=== PATIENT | female | born 1955 | race Caucasian/White ===

== ENCOUNTER → 2018-03-27 08:00 | Outpatient (CLI) | payer MEDICARE ==
[2016-05-17 10:59] VITALS: BMI 30.7
[~2018-03-27 08:00] MED LIST: ATIVAN1 MG PO; BAYER CHEWABLE81 MG PO; BISOPROLOL-HCT1 EAC1 PO; BUMEX2 MG PO; CELEXA10 MG PO; COZAAR100 MG PO; ELIQUIS5 MG PO; EZFE 200200 MG PO; FOLIC ACID1 MG PO; IPRAT-ALBUT 0.5-3 ML UPD; K-DUR20 MEQ PO; KLOR-CON M2020 MEQ PO; KLOR-CON/EF 2525 MEQ PO; LASIX20 MG PO; LEVAQUIN PREMI750 MG IV; MAG-OX 400 MG400 MG PO; MEPRON750 MG/5 M PO; METOPROLOL TART50 MG PO; NICODERM C1 PATCH .3 TRANSDERM; NORVASC10 MG PO; NORVASC5 MG PO; OMNICEF300 MG PO; ONDANSETRON4 MG/2 M3 IV; PREDINSONE PO; PREDNISO PO; PREDNISONE20 MG PO; PREDNISONE5 MG PO; PREDNISONE50 MG; PRILOSEC20 MG PO; RACEMIC EPI 2.0.5 ML NEB; RESTORIL15 MG PO; ROCALTROL0.25 MCG PO; SOLU-MEDRO40 MG/1 M1 IVPB; SYMBICORT 80-10.2 GM INH; TESSALON PERLE100 MG PO; TUMS500 MG PO; ULTRAM50 MG PO; VENTOLIN HFA18 GM INH; VIBRAMYCIN 100100 MG PO; VITAMIN D31000 UNIT PO; XARELTO15 MG PO; ZOSYN 3.3753.375 G1 IV; [UNRECOGNIZED DRUG - OTHER] PO
== END | disposition home or self-care (01) ==
LOC: D.MAMMO 12-13 11:00
DX: Z12.31 Encounter for screening mammogram for malignant neoplasm of breast (principal)

== ENCOUNTER 2018-04-25 06:31 | Outpatient (CLI) | payer MEDICARE ==
[~2018-04-25] VITALS: Ht 160 cm; Wt 86.4 kg
--- NOTE | ~2018-04-25 | HEMODYNAMI ---
PATIENT:KERA ENRIQUEZ MEDICAL RECORD: [id number] : 59 LOCATION:[facility] ADMISSION DATE: 04/25/18 Generatedon:04/25/201810:26 Patient name: KERA ENRIQUEZ Patient #: [id number] SSN: : 1955 Date of study: 04/25/2018 Page: Of Hemodynamic Procedure Report Patient Data Patient Demographics Procedure consent was obtained First Name: KERA Gender: Female Last Name: ZOE : 1955 [facility] Initial: JINA Age: 63 year(s) Patient #: [id number] Race: Unknown Additional ID: [id number] Contact details [address]: [address] [place] [address] State: [place] City: [place] Zip code: [address] Past Medical History Allergies Allergen Reaction Date Comments Reported Codeine 04/25/2018 Admission Admission Data Admission Date: 04/25/2018 Admission Time: 6:31 Procedure Procedure Types Cath Procedure Peripheral Cath Diagnostic Procedure Venography IVC/SVC IVC Filter Retreival Procedure Description Procedure Date Procedure Date: 04/25/2018 Procedure Start Time: 9:48 Procedure Staff Name Function Taqueria Tamayo MD Performing Physician Maximiliano Dai RT Scrub Casandra Holley RN Nurse Tami Kendall RT Monitor Procedure Data Cath Procedure Fluoroscopy Diagnostic fluoroscopy Total fluoroscopy Time: 3.7 time: 3.7 min min Diagnostic fluoroscopy Total fluoroscopy dose: 296 dose: 296 mGy mGy Contrast Material Contrast Material Type Amount (ml) Isovue 300 20 Diagnostic catheters Device Type Used For End Catheter Placement Merit Impress KA 2 5Fr 40CM catheter ([id number]) Procedure Medications Medication Administration Route Dosage Heparin Flush Bag added to field 2 bags (1000units/500ml NS) Lidocaine 1% added to field 20 Versed I.V. 1 mg Fentanyl I.V. 50 mcg Versed I.V. 1 mg Fentanyl I.V. 50 mcg Versed I.V. 1 mg Fentanyl I.V. 50 mcg Versed I.V. 1 mg Fentanyl I.V. 50 mcg Hemodynamics Rest Heart Rate: 76 (bpm) Snapshots Pre Cath Intra NCS Post Cath Vital Signs Time Heart Resp SPO2 etCO2 NIBP (mmHg) Rhythm Pain Sedation Rate (ipm) (%) (mmHg) Status Level (bpm) 9:27:34 93 27 100 32.4 146/89(118) NSR 0 (11) 10(A) , No pain 9:32:01 77 12 100 36.9 165/77(123) NSR 0 (11) 10(A) , No pain 9:36:33 71 16 100 34.6 154/71(126) NSR 0 (11) 10(A) , No pain 9:40:59 72 14 100 34.6 157/73(119) NSR 0 (11) 10(A) , No pain 9:45:28 73 14 100 38.3 156/76(123) NSR 0 (11) 10(A) , No pain 9:49:56 73 14 99 36.8 153/80(114) NSR 0 (11) 8(A) , No pain 9:54:22 72 12 98 39.1 145/68(111) NSR 0 (11) 8(A) , No pain 9:58:38 71 13 98 30.8 138/71(122) NSR 0 (11) 8(A) , No pain 10:02:56 72 12 95 38.3 137/65(104) NSR 0 (11) 8(A) , No pain 10:07:12 73 9 97 39.1 121/63(98) NSR 0 (11) 8(A) , No pain 10:11:31 72 11 94 39.1 129/65(108) NSR 0 (11) 8(A) , No pain 10:15:44 73 10 96 42.9 125/75(105) NSR 0 (11) 8(A) , No pain 10:20:02 71 10 96 42.1 115/62(91) NSR 0 (11) 8(A) , No pain 10:24:16 71 11 96 42.9 118/65(88) NSR 0 (11) 8(A) , No pain Medications Time Medication Route Dose Verified Delivered Reason Notes Effec tiveness by by 9:39:17 Heparin Flush added 2 Taqueria Meng used for Bag to bags Roni Tamayo procedure (1000units/500ml field MD CEDENO NS) 9:39:31 Lidocaine 1% added 20ml Taqueria Meng used for to vial Roniestevan Tamayo procedure field MD CEDENO 9:46:36 Versed I.V. 1 mg Taqueria Guajardo for Roni Kishan RN sedation 9:46:46 Fentanyl I.V. 50 Taqueria Casandra for mcg Roni Kishan RN sedation 9:49:10 Versed I.V. 1 mg Taqueria Casandra for Roni Kishan RN sedation 9:49:19 Fentanyl I.V. 50 Taqueria Casandra for mcg Roni Kishan RN sedation 9:55:00 Versed I.V. 1 mg Taqueria Casandra for Roni Kishan RN sedation 9:55:08 Fentanyl I.V. 50 Taqueria Casandra for mcg Roni Kishan RN sedation 10:04:30 Versed I.V. 1 mg Taqueria Casandra for Roni Kishan RN sedation 10:04:37 Fentanyl I.V. 50 Taqueria Casandra for mcg Roni Kishan RN sedation Procedure Log Time Note 9:11:17 Maximiliano Dai RT (R) (CV) sent for patient. Start room use. 9:11:46 Time tracking: Regular hours (M-F 7:00 - 5:00) 9:11:50 Plan of Care:Hemodynamics will remain stable., Cardiac rhythm will remain stable., Comfort level will be maintained., Respiratory function will remain adequate., Patient/ family verbilizes understanding of procedure., Procedure tolerated without complication., Recovers from procedure without complications.. 9:11:56 Patient received from Outpatients to IR Alert and oriented. Tansferred to table in Supine position. 9:11:57 Correct patient and procedure confirmed by team. 9:11:59 Signed procedure consent form obtained from patient. 9:11:59 ECG and BP/O2 sat monitors applied to patient. 9:12:00 Full Disclosure recording started 9:12:01 - 9:12:04 H&P Date Dictated: 04/25/2018 H&P Addendum completed by physician on day of procedure. (MUST COMPLETE FOR ALL OUTPATIENTS). 9:12:05 Pre-op teaching completed and patient verbalized understanding. 9:12:06 Pre-procedure instructions explained to patient. 9:12:07 Family in waiting room. 9:12:10 Patient NPO since Midnight. 9:12:15 Is the patient allergic to Iodine/contrast media? No. 9:12:29 Patient allergic to Codeine 9:12:31 Is the patient allergic to Iodine/contrast media? No. 9:12:34 Is patient on blood thinner?Yes 9:12:44 ACC The patient was administered the following blood thiners within the last 24 hours: Eliquis 9:12:47 Patient diabetic? No. 9:12:48 - 9:12:49 ----Pre-sedation anethsthesia assessment.---- 9:12:52 Previous problem with sedation/anesthesia? No ? 9:12:54 Snore? Yes 9:12:56 Sleep apnea? No 9:12:57 Deviated septum? No 9:13:01 Opens mouth fully? Yes 9:13:02 Sticks out tongue? Yes 9:13:09 Airway obstruction? Yes copd 9:13:14 Dentures? No ? 9:22:00 Use device set IR Diagnostic 9:22:01 Tegaderm 4 x 4 (1626W) opened to sterile field. 9:22:02 Sterile Angiographic Pack opened to sterile field. 9:22:02 Bag Decanter () opened to sterile field. 9:26:09 Vital chart was started 9:26:10 Baseline sample Acquired. 9:26:22 Patient pain scale 0/10 no pain. 9:26:29 IV patent on arrival in right antecubital with 0.9% NaCl at [facility]. 9:26:38 Right neck area was prepped with chlora-prep and draped in sterile fashion 9::40 Alarms reviewed by R. N. 9::40 Sharps counted by scrub and verified by R.N. 9:33:38 Baseline sample Acquired. 9:39:17 Heparin Flush Bag (1000units/500ml NS) 2 bags added to field was administered by Taqueria Tamayo MD; used for procedure; 9:39:31 Lidocaine 1% 20ml vial added to field was administered by Taqueria hansen MD; used for procedure; 9:42:34 Micropuncture VSI 4FR kit opened to sterile field. 9:43:00 BENTSON 145cm wire ([id number]) opened to sterile field. 9:43:45 SNARE Filter Retreival Kit (SRK20) opened to sterile field. 9:44:04 Physician arrived 9:44:07 --------ALL STOP TIME OUT------ 9:44:09 Final Timeout: patient, procedure, and site verified with staff and physician. All members of the team are in agreement. 9:44:23 Right neck site verified by team. 9:44:35 Sedation plan: IV Moderate Sedation Medication:Versed, Fentanyl 9:46:36 Versed 1 mg I.V. was administered by Casandra Holley RN; for sedation; 9:46:46 Fentanyl 50 mcg I.V. was administered by Casandra Holley RN; for sedation ; 9:46:57 Procedure started. 9:48:32 Local anesthetic to right IJ vein with Lidocaine 1% by Taqueria Tamayo MD.INITIAL ACCESS ONLY 9:49:10 Versed 1 mg I.V. was administered by Casandra Holley RN; for sedation; 9:49:19 Fentanyl 50 mcg I.V. was administered by Casandra Holley RN; for sedation ; 9:51:13 Access obtained with 4Fr micropunture. 9:52:30 A Merit Impress KA 2 5Fr 40CM catheter ([id number]) was advanced over the wire and used for inital access 9:55:00 Versed 1 mg I.V. was administered by Casandra Holley RN; for sedation; 9:55:04 The bard snare sheath inserted. 9:55:08 Fentanyl 50 mcg I.V. was administered by Casandra Holley RN; for sedation ; 9:57:41 The snare retrieval system is inserted 10:03:22 The cava filter in place is snared and removed. 10:03:47 A cavagram is performed. 10:04:30 Versed 1 mg I.V. was administered by Casandra Holley RN; for sedation; 10:04:37 Fentanyl 50 mcg I.V. was administered by Casandra Holley RN; for sedation ; 10:04:38 FILTER Tech LP Vena Cava ([id number]) opened to sterile field. 10:10:31 The tech lp vena cava filter system is put in place to deliver the permanent filter to the vena cava. 10:11:31 Procedure ended.(Physican Out) 10:12:03 Fluoroscopy time 03.70 minutes. 10:12:10 Fluoroscopy dose: 296 mGy 10:12:10 Flurop Dose total: 296 10:13:34 Contrast amount:Isovue 300 20ml. 10:18:47 Post-op/insertion site Right Jugular vein dressed using a 4 x 4 and Tegaderm. 10:19:12 Post right subclavian vein:stable 10:19:28 Post procedure instruction explained to patient.Patient verbalizes understanding. 10:19:30 Patient needs reinforcement of post procedure teaching. 10:19:33 Procedure and supply charges have been captured, reviewed, submitted an d are correct. 10:22:20 See physician's report for complete and final results. 10:22:24 Report given to Outpatients. 10:22:33 Patient transfered to Outpatients with Stretcher. 10:25:34 Vital chart was stopped Device Usage Item Name Manufacture Quantity Catalog Hospital Part Current [facility] l Lot# / Number Charge Number Stock Stock Serial# Code Tegaderm 4 x 3M 1 1626W [id number] [id number] 495204 5 4 (1626W) Sterile Cardinal 1 [id number] 297230 555247 5 Angiographic Health Pack Bag Decanter Microtek 1 496306 01789 484669 5 () Medical Inc. Micropuncture VSI VASCULAR 1 7266V 386513 503112 5 VSI 4FR kit SOLUTIONS BENTSON 145cm Cook Medical 1 [id number] 600525 350094 5 wire (S26469) SNARE Filter Bard 1 SRK20 888080 508755 5 Retreival Kit (SRK20) Merit Impress Merit 1 [id number] 787118 678195 5 KA 2 5Fr 40CM Medical catheter ([id number]) FILTER Tech B. Roach 1 0229223 608875 259314 314223 5 [id number] LP Vena Cava ([id number]) Signature Audit Rudy Stage Time Signature Unsigned Intra-Procedure 04/25/2018 Tami 10:26:16 AM Enoch CUADRA (R) (CV) Signatures Monitor : Tami Signature : Enoch RT Date : Time : [id number] [place] [address]
[2018-04-25 07:04] LABS: BASOPHILS 0.4 % (0-2); EOSINOPHILS 2.6 % (0-7); HEMATOCRIT 30.9 % (36.0-48.0); HEMOGLOBIN 10.8 g/dL (12-16); IMMATURE GRANULOCYTES 0.3 % (0-5); LYMPHOCYTES 20.1 % (15-50); MCH 34.4 pg (26.0-34.0); MCV 98.4 fL (80.0-100.0); MEAN PLATELET VOLUME 9.5 fL (7.4-10.4); NEUTROPHILS 67.6 % (40-80); PLATELET COUNT 260 10x3/uL (130-400); RBC 3.14 10x6/uL (4.00-5.40); RDW 13.5 % (11.5-14.5); WBC 7.6 10x3/uL (4.8-10.8)
[2018-04-25 07:16] LABS: ANION GAP 13.2 mmol/L (8-16); CARBON DIOXIDE 29.9 mmol/L (21.0-32.0); CREATININE - SERUM 1.2 mg/dL (0.6-1.3); POTASSIUM - SERUM 4.1 mmol/L (3.5-5.1)
[2018-04-25 07:19] LABS: APTT 29.9 SECONDS (22.8-39.4); INR 1.05 (0.85-1.17); PROTIME 13.3 SECONDS (11.6-15.0)
[2018-04-25 07:54] VITALS: BP 148/68; Ht 160 cm; Wt 86.4 kg
== END 2018-04-25 12:15 | disposition home or self-care (01) ==
LOC: D.SP 06:31 → D.RAD 09:00 → D.SP 09:00
PROVIDERS: Radiology Diagnostic Radiology
DX: Z86.718 Personal history of other venous thrombosis and embolism (principal); D68.59 Other primary thrombophilia; Z01.812 Encounter for preprocedural laboratory examination

== ENCOUNTER 2018-08-24 11:55 | Inpatient (IN) | payer MEDICARE ==
[~2018-08-24] VITALS: Ht 160 cm; Wt 91.2 kg
--- NOTE | ~2018-08-24 | HEMODYNAMI ---
PATIENT:KERA ENRIQUEZ MEDICAL RECORD: [id number] : 59 LOCATION:[facility] D.2102 ADMISSION DATE: 08/24/18 Generatedon:08/27/20189:05 Patient name: KERA ENRIQUEZ Patient #: [id number] SSN: : 1955 Date of study: 08/27/2018 Page: Of Hemodynamic Procedure Report Patient Data Patient Demographics Procedure consent was obtained First Name: KERA Gender: Female Last Name: ZOE : 1955 Middle Initial: JINA Age: 63 year(s) Patient #: [id number] Race: Unknown Additional ID: [id number] Contact details [address]: [address] [place] [address] State: [place] City: [place] Zip code: [address] Past Medical History Allergies Allergen Reaction Date Comments Reported Codeine 04/25/2018 Other allergy 08/27/2018 Adhesive, Codeine, Lisinopril, Aripiprazole, levofloxacin Admission Admission Data Admission Date: 08/24/2018 Admission Time: 13:29 Room #: D.2102 Lab Results Lab Result Date: 08/27/2018 Lab Result Time: 0:00 Biochemistry Name Units Result Min Max BUN mg/dl 40 --(----)-* 7 18 Creatinine mg/dl 1.3 --(---*)-- 0.6 1.3 CBC Name Units Result Min Max Hemoglobin g/dl 10.7 *-(----)-- 13.5 17.5 Procedure Procedure Types Cath Procedure Diagnostic Procedure LHC LHC w/Coronaries w/Grafts Procedure Description Procedure Date Procedure Date: 08/27/2018 Procedure Start Time: 8:54 Procedure End Time: 9:04 Procedure Staff Name Function Keith Trejo MD Performing Physician Ayesha De Paz RN Nurse Jessica Roman RT Scrub Genesis Carlson RT Scrub Ilda Jones RN Crown Buffer Procedure Data Cath Procedure Fluoroscopy Diagnostic fluoroscopy Total fluoroscopy Time: 3 time: 3 min min Diagnostic fluoroscopy Total fluoroscopy dose: 454 dose: 454 mGy mGy Contrast Material Contrast Material Type Amount (ml) Isovue 300 66 Entry Location Entry Primary Successful Side Size Upsize Upsize Entry Closure Succes sful Closure Location (Fr) 1 (Fr) 2 (Fr) Remarks Device Remarks Femoral Right 5 Fr Exoseal artery Estimated blood loss: 10 ml Diagnostic catheters Device Type Used For End Catheter Placement MULTIPACK Pigtail 5 Fr Procedure catheter MULTIPACK JL 4.0 5Fr Procedure catheter MULTIPACK 3DRC 5Fr Procedure catheter DIAGNOSTIC AR2 MOD 5 Fr Procedure catheter ([id number]) Procedure Complications No complications Procedure Medications Medication Administration Route Dosage 0.9% NaCl I.V. 100 ml/hr Oxygen etCO2 Nasal cannula 2 l/min Lidocaine 2% added to field 20 Heparin Flush Bag added to field 2 bags (1000units/500ml NS) Versed I.V. 2 mg Fentanyl I.V. 100 mcg Versed I.V. 2 mg Versed I.V. 2 mg Hemodynamics Rest HGB: 10.7 (g/dl) Heart Rate: 89 (bpm) Snapshots Pre Cath Intra NCS Post Cath Vital Signs Time Heart Resp SPO2 etCO2 NIBP (mmHg) Rhythm Pain Sedation Rate (ipm) (%) (mmHg) Status Level (bpm) 8:42:49 86 16 100 20 159/82(130) NSR 0 (11) 10(A) , No pain 8:47:17 83 20 100 26 156/72(89) NSR 0 (11) 10(A) , No pain 8:51:35 84 12 96 24.5 148/76(116) NSR 0 (11) 10(A) , No pain 8:57:07 82 12 97 23 155/87(138) NSR 0 (11) 10(A) , No pain 9:02:35 83 13 96 29 153/86(125) NSR 0 (11) 10(A) , No pain Medications Time Medication Route Dose Verified Delivered Reason Notes Effe ctiveness by by 8:53:01 0.9% NaCl I.V. 100 Keith Ilda for ml/hr Maya Jones sedation RN 8:53:09 Oxygen etCO2 2 Keith Ilda used for Nasal l/min Maya Jones procedure cannula RN 8:53:31 Lidocaine 2% added 20ml Keith Parker for local to vial Maya Trejo MD anesthetic field 8:53:36 Heparin Flush added 2 Keith Parker used for Bag to bags Maya Trejo MD procedure (1000units/500ml field NS) 8:53:44 Versed I.V. 2 mg Keith Ilda for Maya Jones sedation RN 8:53:50 Fentanyl I.V. 100 Keith Ilda for mcg Maya Jones sedation RN 8:57:13 Versed I.V. 2 mg Keith Ilda for Maya Jones sedation RN 9:00:33 Versed I.V. 2 mg Keith Ilda for Maya Jones sedation [employer] floorperson Log Time Note 8:10:41 Ayesha De Paz RN sent for patient. Start room use. 8:20:50 Time tracking: Regular hours (M-F 7:00 - 5:00) 8:20:56 Plan of Care:Hemodynamics will remain stable., Cardiac rhythm will remain stable., Comfort level will be maintained., Respiratory function will remain adequate., Patient/ family verbilizes understanding of procedure., Procedure tolerated without complication., Recovers from procedure without complications.. 8:28:53 H&P Date Dictated: 08/26/2018 Within 30 days and on chart.. 8:30:03 Lab Result : Creatinine 1.3 mg/dl 8:30:03 Lab Result : BUN 40 mg/dl 8:30:03 Lab Result : Hemoglobin 10.7 g/dl 8:30:25 Patient received from Med II to CCL 1 Alert and oriented. Tansferred to table in Supine position. 8:36:45 Warm blankets applied, and azam hugger turned on for patient comfort. 8:36:47 Correct patient and procedure confirmed by team. 8:36:49 Signed procedure consent form obtained from patient. 8:36:52 ECG and BP/O2 sat monitors applied to patient. 8:36:58 Vital chart was started 8:37:08 Baseline sample Acquired. 8:37:22 Rhythm: unchanged., sinus rhythm 8:37:25 Full Disclosure recording started 8:37:36 H&P Date Dictated: 08/27/2018 Within 30 days and on chart.. 8:37:39 Pre-procedure instructions explained to patient. 8:37:43 Family in patients room. 8:37:45 Patient NPO since Midnight. 8:38:47 Patient allergic to Other allergyAdhesive, Codeine, Lisinopril, Aripiprazole, levofloxacin 8:38:50 Is the patient allergic to Iodine/contrast media? No. 8:39:02 Was the patient premedicated? Yes 8:39:03 Is patient on blood thinner?Yes 8:39:15 ACC The patient was administered the following blood thiners within the last 24 hours: ACCPlavix, Eliquis 8:39:18 Patient diabetic? No. 8:39:31 Snore? Yes 8:39:33 Sleep apnea? No 8:39:35 Deviated septum? No 8:39:50 Airway obstruction? Yes COPD, Asthma 8:39:55 Dentures? No ? 8:40:02 Patient pain scale 0/10 ?. 8:40:11 IV patent on arrival in right forearm with 0.9% NaCl at KVO. 8:40:17 Lab results completed and on chart. 8:41:02 Right groin area was prepped with chlora-prep and draped in sterile fashion 8:41:04 Alarms reviewed by R. N. 8:41:05 Sharps counted by scrub and verified by R.N. 8:41:19 Physician paged 8:50:23 Physician arrived 8:50:23 --------ALL STOP TIME OUT------ 8:50:24 Final Timeout: patient, procedure, and site verified with staff and physician. All members of the team are in agreement. 8:50:31 Right groin site verified by team. 8:50:36 Physical assessment completed. ASA score P 1 - A normal healthy patient as per Keith Trejo MD. 8:50:41 Sedation plan: IV Moderate Sedation Medication:Versed, Fentanyl 8:50:50 Use device set Femoral Dx 8:50:52 ACIST Syringe (02387) opened to sterile field. 8:50:52 Bag Decanter () opened to sterile field. 8:50:52 Medline Cath Pack ([id number]) opened to sterile field. 8:50:53 DIAGNOSTIC WIRE .035 260cm J wire (376958) opened to sterile field. 8:50:58 ACIST Hand Control (54149) opened to sterile field. 8:50:58 ACIST Manifold (73756) opened to sterile field. 8:50:59 DIAGNOSTIC Multipack 5Fr catheter set ([id number]) opened to sterile field. 8:51:00 Tegaderm 4 x 4 (1626W) opened to sterile field. 8:51:04 SHEATH 5FR Dallas ([id number]) opened to sterile field. 8:51:39 Zero performed for pressure channel P1 8:53:01 0.9% NaCl 100 ml/hr I.V. was administered by Ilda Jones RN; for sedation; 8:53:09 Oxygen 2 l/min etCO2 Nasal cannula was administered by Ilda Jones RN; used for procedure; 8:53:31 Lidocaine 2% 20ml vial added to field was administered by Keith Trejo MD; for local anesthetic; 8:53:36 Heparin Flush Bag (1000units/500ml NS) 2 bags added to field was administered by Keith Trejo MD; used for procedure; 8:53:44 Versed 2 mg I.V. was administered by Ilda Jones RN; for sedation; 8:53:50 Fentanyl 100 mcg I.V. was administered by Ilda Jones RN; for sedation; 8:53:52 Procedure started. 8:54:18 Local anesthetic to right femoral artery with Lidocaine 2% by Keith Trejo MD.INITIAL ACCESS ONLY 8:54:52 A 5 Fr sheath was inserted into the Right Femoral artery 8:55:22 A MULTIPACK Pigtail 5 Fr catheter was advanced over the wire and used for Procedure. 8:56:01 EF : 70 % 8:56:08 Catheter removed. 8:56:18 A MULTIPACK JL 4.0 5Fr catheter was advanced over the wire and used for Procedure. 8:57:06 LCA angiography performed. 8:57:08 Catheter removed. 8:57:13 Versed 2 mg I.V. was administered by Ilda Jones RN; for sedation; 8:57:17 A MULTIPACK 3DRC 5Fr catheter was advanced over the wire and used for Procedure. 8:57:33 LAW to LAD angiography performed. 8:58:03 RCA angiography performed. 8:58:29 Catheter removed. 8:58:37 A DIAGNOSTIC AR2 MOD 5 Fr catheter ([id number]) was advanced over the wire and used for Procedure. 8:59:27 SVG to Diag angiography performed. 9:00:06 SVG to Circ angiography performed. 9:00:33 Versed 2 mg I.V. was administered by Ilda Jones RN; for sedation; 9:01:59 SVG to RCA angiography performed. 9:02:35 EXOSEAL 5Fr (EX500) opened to sterile field. 9:02:45 Catheter removed. 9:02:57 Sheath removed intact; hemostasis achieved with Exoseal to the Right Femoral artery. 9:03:01 Procedure ended.(Physican Out) 9:03:14 Fluoroscopy time 03.00 minutes. 9:03:24 Fluoroscopy dose: 454 mGy 9:03:24 Flurop Dose total: 454 9:03:34 Contrast amount:Isovue 300 66ml. 9:03:37 Sharps counted by scrub and verified by R.N. 9:03:38 Insertion/operative site no bleeding no hematoma. 9:03:42 Post-op/insertion site Right Femoral artery dressed using a 4 x 4 and Tegaderm. 9:03:44 Post Procedure Pulses reassessed and unchanged 9:03:47 Estimated blood loss: 10 ml 9:03:49 Post procedure instruction explained to patient.Patient verbalizes understanding. 9:04:05 Procedure type changed to Cath procedure, Diagnostic procedure, LHC, LHC w/Coronaries w/Grafts 9:04:09 Procedure and supply charges have been captured, reviewed, submitted and are correct. 9:04:35 Procedure Complication : No complications 9:04:38 Vital chart was stopped 9:04:38 See physician's report for complete and final results. 9:04:40 Report given to Pre/Post Procedure Room. 9:04:45 Patient transfered to [facility] with Bed. 9:04:49 Procedure ended. 9:04:49 Full Disclosure recording stopped 9:04:51 End room use (Document Last) Device Usage Item Name Manufacture Quantity Catalog Hospital Part Current Minimal L ot# / Number Charge Number Stock Stock Serial# Code ACIST Acist 1 [id number] 560278 564427 400938 20 Syringe [employer] (90503) Systems Inc Bag Microtek 1 158952 98127 103981 5 Decanter Medical Inc. () Medline Medline 1 [id number] 109525 03176 441307 5 Cath Pack ([id number]) DIAGNOSTIC St Edmundo 1 467042 910289 504553 192940 30 WIRE .035 260cm J wire (099114) ACIST Hand Acist 1 95826 888425 069081 567806 5 Control Medical (46907) Systems Inc ACIST Acist 1 70242 479979 546464 572694 5 Manifold Medical (81891) Systems Inc DIAGNOSTIC Cardinal 1 [id number] 437959 72521 786707 30 Multipack Health 5Fr catheter set ([id number]) Tegaderm 4 3M 1 1626W 811747 311883 902423 5 x 4 (1626W) SHEATH 5FR Terumo 1 [id number] 766822 963370 601555 5 [place] (LIM633) MULTIPACK Cardinal 1 953743 5 Pigtail 5 Health Fr catheter MULTIPACK Cardinal 1 710033 5 JL 4.0 5Fr Health catheter MULTIPACK Cardinal 1 699279 5 3DRC 5Fr Health catheter DIAGNOSTIC Cardinal 1 [id number] 964595 414684 371386 20 AR2 MOD 5 Health Fr catheter ([id number]) EXOSEAL 5Fr Cardinal 1 EX500 012624 992748 078966 10 (EX500) Health Signature Audit Savanna Stage Time Signature Unsigned Intra-Procedure 08/27/2018 Jessica Roman 9:05:15 AM RT(R) [id number] [place] [address]
--- NOTE | ~2018-08-24 | OP ---
PATIENT NAME: KERA ENRIQUEZ MEDICAL RECORD: [id number] :59 LOCATION:D.M2 D.2102 ADMISSION DATE:08/24/18 SURGEON: RACHEL MIRANDA MD DATE OF OPERATION: 08/27/2018 PROCEDURES: 1. Left heart catheterization. 2. Selective coronary angiography. 3. Left ventriculogram. 4. Vein graft angiography. 5. LAW angiography. INDICATION: Angina and coronary artery disease. PROCEDURE IN DETAIL: After informed consent was obtained with detailed description of risks and benefits as well as alternative therapies, the patient elected to proceed with angiogram and heart catheterization. The right femoral area was prepped and draped in normal sterile fashion. Right femoral artery was cannulated via modified Seldinger technique with placement of 6-Kiswahili sheath. All catheters were exchanged through this sheath. FINDINGS: Left ventriculogram performed in standard 30-degree SILVA view reveals good cardiac wall motion throughout all segments. Overall ejection fraction estimated at 60%. SELECTIVE CORONARY ANGIOGRAPHY: 1. Left main is with no significant angiographic disease. 2. Left anterior descending is totally occluded. 3. Left circumflex is totally occluded. 4. There is a ramus intermedius that is nongrafted and that is widely patent. 5. The right coronary has a high-grade stenosis in the mid and distal vessel. 6. LAW to the LAD is patent; however, very small. 7. Vein graft to the LAD diagonal is patent. The distal diagonal is patent, but very small and diffusely diseased. 8. The left circumflex vein graft is patent in a skipped fashion to OM1 and OM2. Circumflex vein graft is patent. The circumflex itself is small and diffusely diseased. 9. Right coronary vein graft is patent. Distal right coronary is patent. OVERALL IMPRESSION: Wide patency of all grafts. Small diffuse disease distally. Medical management of coronary artery disease and cardiac risk factors. TRANSINT:[id number] Voice Confirmation ID: [id number] DOCUMENT ID: [id number] RACHEL MIRANDA MD CC: [id number] DICTATION DATE: 08/27/18905 CLIENT RESOURCE SPECIALIST: 08/27/18 1518 ADM IN [facility] [address] [place] [address]
--- NOTE | ~2018-08-24 | CN ---
PATIENT NAME:KERA RAMIREZ MEDICAL RECORD: [id number] : 59 LOCATION:D. D.2102 ADMIT DATE: 08/24/18 ACCOUNT: [id number] CONSULTING PHYSICIAN: SHAREE WRIGHT MD REFERRING PHYSICIAN: IBJU GUERRERO MD DATE OF CONSULTATION: 08/25/2018 CONSULT REQUESTING PHYSICIAN: Dr. Lynn Julio REASON FOR CONSULTATION: Acute exacerbation of chronic obstructive pulmonary disease, possible pulmonary edema. HISTORY OF PRESENT ILLNESS: Ms. Ramirez is a 63-year-old female who has a history of COPD and history of Goodpasture syndrome. According to the patient, she is sick since last Monday, she was given some prednisone and doxycycline, but the patient was not getting any better. She was seen in Dr. Guerrero' office yesterday but the patient was still coughing, wheezing, and shortness of breath. She was directly admitted from the office. Denies any fever and chill, no night sweats. Now, she is feeling a little bit better. REVIEW OF SYSTEMS: As in the history of present illness. PAST MEDICAL HISTORY: 1. COPD. 2. History of asthma. 3. History of pneumonia. 4. Goodpasture syndrome. 5. History of pulmonary hypertension. 6. Gastroesophageal reflux disease. 7. Anxiety and depression. PAST SURGICAL HISTORY: 1. She had a CABG in 2013. 2. She has a cyst removed from her back. 3. Status post IVC filter placement. 4. Tubal ligation. 5. . 6. Renal biopsy. 7. Rhinoplasty. ALLERGIES: SHE IS ALLERGIC TO ADHESIVE, CODEINE, LISINOPRIL, ABILIFY, LEVOFLOXACIN. MEDICATIONS: Torrent LoadingSystemstech is reviewed. PERSONAL AND SOCIAL HISTORY: The patient has quit smoking, but she restarted smoking again. She is also drinking. FAMILY HISTORY: Significant for neurological and cardiovascular disorders. PHYSICAL EXAMINATION: GENERAL: Now, the patient is lying comfortably in bed. She is not in acute distress. VITAL SIGNS: The blood pressure is 164/77, pulse is 80, respiration 20, temperature 98.2, SPO2 is 99% on 2 liters nasal cannula. CONSULT REPORT [id number] KERA RAMIREZ HEENT: Conjunctivae are pink. Sclerae are not icteric. NECK: Supple, no JVD. CHEST: There are bilateral crackles. No wheezing. HEART: Rhythm regular, normal sound, no murmur. ABDOMEN: Soft, bowel sounds present. No hepatosplenomegaly. RECTAL: Deferred. EXTREMITIES: No cyanosis, no clubbing, no pedal edema. CENTRAL NERVOUS SYSTEM: The patient is awake and alert. There are no obvious cranial nerve abnormalities. The gait was not tested. CHEST RADIOGRAPH: There is no acute infiltrate. No pleural effusion. OTHER LABORATORY DATA: CBC: The WBC is 13.5, hemoglobin 11.3, hematocrit 32, platelet count 262. Chemistry: Sodium 132, potassium is 3.7, BUN is 26, and creatinine 1.1. IMPRESSION: 1. Acute exacerbation of chronic obstructive pulmonary disease. 2. Tracheobronchitis. 3. Congestive heart failure. 4. Pulmonary edema. 5. Leukocytosis. 6. History of Goodpasture syndrome. 7. Tobacco dependence syndrome. RECOMMENDATIONS: 1. Continue empiric doxycycline. 2. Continue Bumex. 3. Albuterol and ipratropium nebulizer, Brovana and budesonide nebulizer. 4. Follow up on the cardiac echo. 5. Follow up labs and chest radiograph. Discussed with Dr. Julio, thank you for involving me in the care of Ms. Ramirez. TRANSINT:[id number] Voice Confirmation ID: [id number] DOCUMENT ID: [id number] SHAREE WRIGHT MD CC: [id number] DICTATION DATE: 08/25/18 1459 LEACHER: 08/25/182012 ADM IN [facility] [address] [place] [address]
[~2018-08-24 11:55] MED LIST changes: -ANORO ELLIPTA1 EACH INH; -LOMOTIL 2.5-0.1 EAC1 PO; -SYNTHROID50 MCG PO
[2018-08-24 14:04] VITALS: BP 143/78; BMI 34.3
[2018-08-24 14:06] LABS: BASOPHILS 0.1 % (0-2); EOSINOPHILS 0 % (0-7); HEMOGLOBIN 11.3 g/dL (12-16); IMMATURE GRANULOCYTES 0.4 % (0-5); LYMPHOCYTES 10.1 % (15-50); MCHC 35.3 g/dL (31.0-37.0); MCV 99.1 fL (80.0-100.0); MEAN PLATELET VOLUME 9.3 fL (7.4-10.4); MONOCYTES 9.3 % (2-11); NEUTROPHILS 80.1 % (40-80); PLATELET COUNT 262 10x3/uL (130-400); RBC 3.23 10x6/uL (4.00-5.40); RDW 13.5 % (11.5-14.5); WBC 13.5 10x3/uL (4.8-10.8)
[2018-08-24 14:17] LABS: ALBUMIN 3.7 g/dL (3.4-5.0); ANION GAP 13.6 mmol/L (8-16); BILIRUBIN - TOTAL 0.21 mg/dL (0.2-1.3); CALCIUM 8.9 mg/dL (8.5-10.1); CREATININE - SERUM 1.2 mg/dL (0.6-1.3); POTASSIUM - SERUM 3.6 mmol/L (3.5-5.1); PROTEIN - SERUM 7.8 g/dL (6.4-8.2)
[2018-08-24 14:24] LABS: MAGNESIUM - SERUM 1.3 mg/dL (1.8-2.4); PHOSPHOROUS 3.1 mg/dL (2.5-4.9)
--- NOTE | 2018-08-24 14:28 | NUR ---
SPOKE WITH DR. ROMAN HE STATED HE WAS CONSULTED ON PT FOR LOW SODIUM. HE ASKED WHAT PT'S SODIUM, BUN, AND CREATNINE LEVELS ARE. I STATED THEM TO HIM. HE VERBALIZED UNDERSTANDING.
[2018-08-24] MEDS ORDERED: SYNTHROID50 MCG PO (14:58)
[2018-08-24] MEDS ORDERED: ANORO ELLIPTA1 EACH INH (14:59)
[2018-08-24] MEDS ORDERED: LOMOTIL 2.5-0.1 EAC1 PO (14:59)
--- NOTE | 2018-08-24 15:00 | NUR ---
PT ARRIVED IN A WHEELCHAIR. INITIAL PT ASSESMENT COMPLETED. PT AAOX4 VSS, RESP LABORED, WITH DYSP ON EXERCABATION. PT ON 02 NC. PT RLL AND LLL SWOLLEN, NO PITTING NOTED. STARTED PT IV 22G IN RT AC, NS @KVO.PT FIRST DOSE OF ROCEPHINE GIVEN. PT DENIES ANY NEED FOR PAIN. SPOUSE AT THE BEDSIDE.CL WITH REACH, BED IN LOW. WILL CONTINUE TO MONITOR PT.
[2018-08-24] MEDS ORDERED: IPRAT-ALBUT 0.5-3 ML UPD (15:03)
--- NOTE | 2018-08-24 19:06 | NUR ---
PT IN BED. AT BEDSIDE. PT DENIES NEEDS AT THIS TIME.
[2018-08-24 20:00] VITALS: BP 153/65
--- NOTE | 2018-08-24 22:28 | NUR ---
PT TALKING ON PHONE. NO DISTRESS NOTED. CALL LIGHT WITHIN REACH.
--- NOTE | 2018-08-25 01:00 | NUR ---
PT IN BED RESTING. AT BEDSIDE.
[2018-08-25 04:00] VITALS: BP 164/77
[2018-08-25 05:40] LABS: BASOPHILS 0 % (0-2); EOSINOPHILS 0 % (0-7); HEMATOCRIT 30.6 % (36.0-48.0); HEMOGLOBIN 10.5 g/dL (12-16); IMMATURE GRANULOCYTES 0.5 % (0-5); LYMPHOCYTES 6.8 % (15-50); MCH 34.2 pg (26.0-34.0); MCHC 34.3 g/dL (31.0-37.0); MCV 99.7 fL (80.0-100.0); MONOCYTES 3.2 % (2-11); NEUTROPHILS 89.5 % (40-80); PLATELET COUNT 268 10x3/uL (130-400); RBC 3.07 10x6/uL (4.00-5.40); RDW 13.5 % (11.5-14.5)
[2018-08-25 05:44] LABS: ALBUMIN 3.3 g/dL (3.4-5.0); ANION GAP 13.9 mmol/L (8-16); BILIRUBIN - TOTAL 0.15 mg/dL (0.2-1.3); CARBON DIOXIDE 23.8 mmol/L (21.0-32.0); CREATININE - SERUM 1.1 mg/dL (0.6-1.3); MAGNESIUM - SERUM 1.5 mg/dL (1.8-2.4); POTASSIUM - SERUM 3.7 mmol/L (3.5-5.1); PROTEIN - SERUM 6.9 g/dL (6.4-8.2); WBC 8.6 10x3/uL (4.8-10.8)
--- NOTE | 2018-08-25 07:29 | NUR ---
REPORT RECEIVED. WILL CONTINUE WITH POC. PT LYING SEMI FOWLERS. CALL LIGHT W/I REACH. PT IS AAO AND UP WITH ASSIST. RR EVEN AND UNLABORED ON 2L 02. NS INFUSING @KVO VIA R.AC PIV. PT DENIES ANY NEEDS AT THIS TIME. WILL CTM.
[2018-08-25 07:32] VITALS: BMI 34.3
--- NOTE | 2018-08-25 08:28 | NUR ---
PT SITTING UP IN BED RESTING QUIETLY. DENIES ANY CURRENT PAIN OR NEEDS. CL IN REACH, FAMILY AT BEDSIDE. WILL CTM.
[2018-08-25 09:43] VITALS: Ht 160 cm; Wt 91.2 kg
[2018-08-25 10:19] VITALS: BP 137/53
[2018-08-25 17:30] VITALS: BP 149/58
--- NOTE | 2018-08-25 18:16 | NUR ---
PT CURRENTLY SITTING UP IN CHAIR. CALL LIGHT W/I REACH. AT BEDSIDE. PT IS AAO AND UP AD MINERVA. RR LABORED ON EXERTION WITH ACTIVITY ON 2L 02. NS INFUSING @KVO VIA R.AC PIV. PT DENIES ANY NEEDS AT THIS TIME. WILL PASS REPORT AND CONTINUE WITH POC.
--- NOTE | 2018-08-25 19:03 | NUR ---
PT IN BED AT BEDSIDE. ANSWERED QUESTIONS REGARDING 2100 MEDS. PT DENIES NEEDS AT THIS TIME.
[2018-08-25 21:08] VITALS: BP 168/70
[2018-08-26] VITALS (8 sets, daily range): BP systolic 137–164; BP diastolic 60–98
[2018-08-26 05:28] LABS: BASOPHILS 0 % (0-2); EOSINOPHILS 0 % (0-7); HEMATOCRIT 29.6 % (36.0-48.0); HEMOGLOBIN 10.4 g/dL (12-16); IMMATURE GRANULOCYTES 0.3 % (0-5); LYMPHOCYTES 6.2 % (15-50); MCH 34.8 pg (26.0-34.0); MCHC 35.1 g/dL (31.0-37.0); MEAN PLATELET VOLUME 10.1 fL (7.4-10.4); MONOCYTES 4.6 % (2-11); NEUTROPHILS 88.9 % (40-80); PLATELET COUNT 264 10x3/uL (130-400); RBC 2.99 10x6/uL (4.00-5.40); RDW 13.7 % (11.5-14.5); WBC 10.3 10x3/uL (4.8-10.8)
[2018-08-26 05:42] LABS: ALBUMIN 3.3 g/dL (3.4-5.0); ANION GAP 15.7 mmol/L (8-16); BILIRUBIN - TOTAL 0.17 mg/dL (0.2-1.3); CALCIUM 8.3 mg/dL (8.5-10.1); CREATININE - SERUM 1.5 mg/dL (0.6-1.3); MAGNESIUM - SERUM 1.4 mg/dL (1.8-2.4); POTASSIUM - SERUM 3.7 mmol/L (3.5-5.1); PROTEIN - SERUM 6.7 g/dL (6.4-8.2)
--- NOTE | 2018-08-26 07:22 | NUR ---
REPORT RECEIVED. WILL CONTINUE WITH POC. PT CURRENTLY LYING SEMI FOWLERS. CALL LIGHT W/I REACH. PT IS AAO AND UP AD MINERVA. RR EVEN AND UNLABORED ON 2L . NS INFUSING @KVO VIA R.AC PIV. PT DENIES ANY NEEDS AT THIS TIME. WILL CTM.
--- NOTE | 2018-08-26 14:05 | NUR ---
BENNY LAMA PLACED 20GA PIV IN THE RIGHT UPPER ARM, X1 ATTEMPT. PT TOLERATED WELL. REMOVED PREVIOUS PIV WITH CATHETER TIP FULLY INTACT. WILL CTM.
--- NOTE | 2018-08-26 17:48 | NUR ---
PT CURRENTLY SITTING IN CHAIR. CALL LIGHT W/I REACH. AT BEDSIDE. PT UP AND WALKING WITH DOWN AND BACK AROUND THE FLOOR. PT DENIES ANY NEEDS. WILL PASS REPORT AND CONTINUE WITH POC.
--- NOTE | 2018-08-26 19:15 | NUR ---
PT IN CHAIR. AT BEDSIDE. PT DENIES NEEDS AT THIS TIME.
[2018-08-27] VITALS (10 sets, daily range): BP systolic 130–171; BP diastolic 49–82
--- NOTE | 2018-08-27 02:01 | NUR ---
RESTING IN BED WITH NO DISTRESS. RESPS NONLABORED. CALL LIGHT IN REACH. MONITOR AND CPOC.
[2018-08-27 05:58] LABS: BASOPHILS 0 % (0-2); EOSINOPHILS 0 % (0-7); HEMATOCRIT 31.1 % (36.0-48.0); HEMOGLOBIN 10.7 g/dL (12-16); IMMATURE GRANULOCYTES 0.8 % (0-5); LYMPHOCYTES 8.7 % (15-50); MCH 33.6 pg (26.0-34.0); MCHC 34.4 g/dL (31.0-37.0); MCV 97.8 fL (80.0-100.0); MONOCYTES 5.8 % (2-11); NEUTROPHILS 84.7 % (40-80); PLATELET COUNT 277 10x3/uL (130-400); RBC 3.18 10x6/uL (4.00-5.40); RDW 13.5 % (11.5-14.5); WBC 9.8 10x3/uL (4.8-10.8)
[2018-08-27 06:10] LABS: ALBUMIN 3.4 g/dL (3.4-5.0); ANION GAP 15.8 mmol/L (8-16); BILIRUBIN - TOTAL 0.21 mg/dL (0.2-1.3); CALCIUM 8.3 mg/dL (8.5-10.1); CARBON DIOXIDE 25.1 mmol/L (21.0-32.0); CREATININE - SERUM 1.3 mg/dL (0.6-1.3); MAGNESIUM - SERUM 1.3 mg/dL (1.8-2.4); POTASSIUM - SERUM 3.9 mmol/L (3.5-5.1); PROTEIN - SERUM 7.1 g/dL (6.4-8.2)
--- NOTE | 2018-08-27 08:20 | NUR ---
PT PREOPED AND TAKEN TO LABORER [employer] VIA BED.
--- NOTE | 2018-08-27 09:08 | NUR ---
SPOKE WITH DR. MIRANDA HE STATES TO NOT GIVE PT ELIQUIS TODAY. PT CAN HAVE ELIQUIS STARTING TOMORROW.
--- NOTE | 2018-08-27 09:09 | NUR ---
BEDSPREAD CUTTER STATES DR. MIRANDA LEFT HEART CATH CLEAN RIGHT GROIN 5 GEORGIAN EXOCIL.
--- NOTE | 2018-08-27 09:20 | NUR ---
PT RETURNED FROM WASHER AND CAPPER MACHINE OPERATOR. ALERT AND ORIENTED. RIGHT GROIN SOFT, SHOWS NO S/S OF HEMATOMA, DRESSING C/D/I. PP CHECKED. NO TELEMETRY MONITORS AVAILABLE. VS STABLE. PT LAYING FLAT AND TO STAY FLAT FOR X2 HOURS, PT VERBALIZED UNDERSTANDING. O2 AT 2L VIA NC. VS STABLE. SON AT BEDSIDE. RIGHT UPPER ARM NS AT 1OO. BED LOW. CL IN REACH. WILL CONTINUE TO MONITOR.
--- NOTE | 2018-08-27 09:37 | NUR ---
RESP UL ON . IV PATENT. CALL LIGHT IN REACH. WILL CONT. PLAN OF CARE.
--- NOTE | 2018-08-27 10:46 | NUR ---
PT LAYING FLAT. EYES CLOSED. CHEST RISING IN FALLING. PP CHECKED. RIGHT GROIN SITE C/D/I AND SOFT. O2 AT 2L VIA NC. VS STABLE. RIGHT UPPER ARM NS AT 100 AND MAGNESIUM SULFATE IVPB AT 100. BED LOW. CL IN REACH.
--- NOTE | 2018-08-27 11:00 | NUR ---
MENU FAXED TO DIETARY.
--- NOTE | 2018-08-27 11:20 | NUR ---
PT HOB RAISED GRADUALLY. RIGHT GROIN SOFT NO S/S OF HEMATOMA. WILL CONTINUE TO MONITOR.
--- NOTE | 2018-08-27 11:50 | NUR ---
PT HAD URINE INCONTINENCE IN BED. ASSISTED PT TO BATHROOM AND HELP HER CLEAN HERSELF WITH BED BATH WIPES. FULL LINEN CHANGE DONE.
--- NOTE | 2018-08-27 12:07 | NUR ---
HAT PLACED IN COMMODE TO COLLECT UA. PT VEBALIZED UNDERSTANDING OF UA NEEDED.
--- NOTE | 2018-08-27 14:36 | CN ---
PATIENT NAME:KERA RAMIREZ MEDICAL RECORD: [id number] : 59 LOCATION:D.M2 D.2102 ADMIT DATE: 08/24/18 ACCOUNT: [id number] CONSULTING PHYSICIAN: RACHEL MIRANDA MD REFERRING PHYSICIAN: BIJU MONAE MD DATE OF CONSULTATION: 08/26/2018 DIAGNOSES: 1. Angina. 2. Coronary artery disease. 3. Previous coronary bypass graft surgery of 5 vessels four years ago. 4. Shortness of breath and dyspnea on exertion. 5. COPD. 6. Smoking history. 7. Hypertension. 8. Hyperlipidemia. HISTORY: Ms. Ramirez presents with 2 months of increasing shortness of breath. She as well has had some chest pain and chest discomfort, especially over the past few weeks. She does have a history of coronary artery disease, status post coronary bypass graft surgery of 5 vessels four years ago. Her ejection fraction was normal on a recent echo now. PHYSICAL EXAMINATION: GENERAL APPEARANCE: Well-nourished, well-developed, appears stated age. Level of distress, comfortable. PSYCHIATRIC: Mental status, alert, normal affect. Orientation, oriented to time, place and person. EYES: Lids and conjunctiva, noninjected. No discharge, no pallor. ENT: Lips, teeth, gums, normal dentition. Oropharynx, no cyanosis, no pallor. NECK: Carotid arteries, bilateral normal upstroke, no bruits, no thrills. JUGULAR VEINS: No jugular venous pressure or distention. CERVICAL LYMPH NODES: Nontender, nonenlarged. THYROID: Not enlarged. Nontender. No nodules. LUNGS: Respiratory effort, unlabored. CHEST: Normal curvature. No thoracic deformity. No chest wall tenderness. Percussion, resonant. Auscultation, clear. No wheezes, no rales, no rhonchi. CARDIOVASCULAR: Precordial exam, nondisplaced. No heaves or pericardial thrills. Rate and rhythm, regular. Heart sounds, normal S1, normal S2. No S3, no gallop, no rub. Systolic murmur, not heard. Diastolic murmur, not heard. EXTREMITIES: No cyanosis, no edema. Peripheral pulses, full and equal in all extremities, except as noted. No bruits appreciated. ABDOMEN: Soft, nondistended. Normal aorta. No bruit. Nontender. No masses. Liver, nontender, no hepatomegaly. Spleen, nontender, no splenomegaly. MUSCULOSKELETAL: No joint tenderness. No joint swelling. No erythema. NEUROLOGICAL: Normal gait, normal strength, normal tone. SKIN: Warm and dry. OVERALL IMPRESSION: Shortness of breath, very well may be ischemic in nature. She does have an ongoing infectious process, for which she is on antibiotic and she is being treated with COPD medications; however, the shortness of breath continues. The symptomatology is very similar to her symptomatology she had prior to the bypass surgery 4-5 years ago. Hence, we will proceed with coronary angiography to evaluate ischemic nature of the shortness of breath and the dyspnea on exertion as well as the chest discomfort. CONSULT REPORT [id number] KERA RAMIREZ TRANSINT:[id number] Voice Confirmation ID: [id number] DOCUMENT ID: [id number] RACHEL MIRANDA MD at 1436 CC: [id number] DICTATION DATE: 08/26/18 123 DIRECTOR EMERGENCY DEPARTMENT: 08/26/18 1550 ADM IN [place] [id number] [place] [id number]
--- NOTE | 2018-08-27 14:36 | EC ---
PATIENT:KERA ENRIQUEZ DATE OF SERVICE: 08/24/18 SEX: F MEDICAL RECORD: [id number] DATE OF : 59 LOCATION:D.M2 D.210 AGE OF PATIENT: 63 ADMISSION DATE: 08/24/18 REFERRING PHYSICIAN: INTERPRETING PHYSICIAN: RACHEL TREJO MD ECHOCARDIOGRAM REPORT ECHO CHARGES 4 ECHO COMPLETE Date: 08/25/18 CLINICAL DIAGNOSIS: DYSPNEA ECHOCARDIOGRAPHIC MEASUREMENTS (adult normal given) AC root (d.<3.7cm) 2.7 cm LV Septum d (<1.2 cm> 1.2 cm Valve Excursion 1.0 cm LV Septum (systole) 1.3 cm Left Atria (s.<4.0cm> 4.3 cm LVPW d(<1.2cm) 1.0 cm RV (d.<2.3cm) 2.8 cm LVPW (sytole) 1.0 cm LV diastole(<5.6CM) 5.0 cm MV E-F(>70mm/sec) cm LV systole 4.4 cm LVOT Diameter 1.4 cm MV exc.(>10mm) cm Est.ejection fraction (50-75%) % DOPPLER: LVIT cm/sec A 86 cm/sec E 94 cm/sec LA cm/sec RVSP 44.3 mmHg LVOT 144 cm/sec AOP1/2T m/s Asc. Ao 208 cm/sec RVOT 103 cm/sec RA cm/sec PA 97 cm/sec AV Gradient Peak 17.3 mmHg AV Mean 10.4 mmHg AV Area 1.4 cm MV Gradient Peak 7.7 mmHg MV Mean 4.2 mmHg MV Area cm COMMENTS: Director School Of Nursing: [employer] [facility] Regulatory Affairs Manager: 1 Dr. Trejo TAPE# PACS Pericardial Effusion N DATE OF SERVICE: 08/25/2018 FINDINGS: 1. Left ventricular chamber size is within normal limits. Left ventricular systolic function is normal. Overall ejection fraction is estimated at 60%. 2. Left atrium is mildly dilated at 4.3 cm. Right atrium and right ventricular chamber sizes are within normal limit. 3. Valvular structures have normal structure and motion. 4. Doppler interrogation reveals trace mitral regurgitation and mild tricuspid regurgitation. No other valvular insufficiency or stenosis. Pulmonary systolic ECHOCARDIOGRAM REPORT [id number] KERA ENRIQUEZ pressure is estimated at 44 mmHg. 5. No evidence of pericardial effusion or left ventricular thrombus. TRANSINT:[id number] Voice Confirmation ID: [id number] DOCUMENT ID: [id number] RACHEL TREJO MD at 1436 CC: [id number] DICTATION DATE: 08/26/18 1216 PUBLIC HEALTH POLICY ANALYST: 08/26/18 1541 ADM IN [facility] [address] [place] [address]
[2018-08-27 18:37] LABS: APPEARANCE CLEAR (CLEAR); BILIRUBIN NEGATIVE (NEGATIVE); COLOR STRAW (YELLOW); GLUCOSE NEGATIVE (NEGATIVE); KETONE NEGATIVE (NEGATIVE); NITRITE NEGATIVE (NEGATIVE); PROTEIN TRACE mg/dL (NEGATIVE); UROBILINOGEN NORMAL (NORMAL)
--- NOTE | 2018-08-27 19:04 | NUR ---
PT IN CHAIR. AT BEDSIDE. PT DENIES NEEDS AT THIS TIME.
[2018-08-28] VITALS: BP 132/77
--- NOTE | 2018-08-28 00:59 | NUR ---
PT IN BED RESTING QUIETLY. EVEN AND UNALBORED RESPIRATIONS NOTED AT THIS TIME.
[2018-08-28 04:00] VITALS: BP 156/57
[2018-08-28 06:24] LABS: BASOPHILS 0.1 % (0-2); EOSINOPHILS 0 % (0-7); HEMATOCRIT 31.1 % (36.0-48.0); HEMOGLOBIN 10.6 g/dL (12-16); IMMATURE GRANULOCYTES 1.2 % (0-5); LYMPHOCYTES 8.4 % (15-50); MCHC 34.1 g/dL (31.0-37.0); MCV 99.7 fL (80.0-100.0); MEAN PLATELET VOLUME 9.5 fL (7.4-10.4); MONOCYTES 6.2 % (2-11); NEUTROPHILS 84.1 % (40-80); PLATELET COUNT 254 10x3/uL (130-400); RBC 3.12 10x6/uL (4.00-5.40); RDW 13.9 % (11.5-14.5); WBC 11.3 10x3/uL (4.8-10.8)
[2018-08-28 06:51] LABS: ALBUMIN 3.2 g/dL (3.4-5.0); ANION GAP 15.8 mmol/L (8-16); BILIRUBIN - TOTAL 0.22 mg/dL (0.2-1.3); CARBON DIOXIDE 23.5 mmol/L (21.0-32.0); CREATININE - SERUM 1.5 mg/dL (0.6-1.3); MAGNESIUM - SERUM 2.7 mg/dL (1.8-2.4); POTASSIUM - SERUM 4.3 mmol/L (3.5-5.1); PROTEIN - SERUM 6.8 g/dL (6.4-8.2)
--- NOTE | 2018-08-28 07:30 | NUR ---
RECEIVED A/A/OX4. DENIES ANY PAIN AND NO REQUESTS VOICED. DRESSING TO RIGHT GROIN C/D/I WITH NO HEMATOMA NOTED. PEDAL PULSES PALPABLE BUT SOME SLIGHT EDEMA NOTED TO LOWER LEGS WHICH SHE STATES IS NOT A NEW PROBLEM. BED IN LOW POSITION AND CALL LIGHT IN REACH.
[2018-08-28 08:11] VITALS: BP 124/54
--- NOTE | 2018-08-28 09:31 | NUR ---
RESTS IN BED WITH CALL LIGHT IN REACH. RESP UL ON . WILL CONT. PLAN OF CARE.
[2018-08-28 12:09] VITALS: BP 129/66
[2018-08-28 15:17] VITALS: BP 131/59
[2018-08-28 20:00] VITALS: BP 133/62
--- NOTE | 2018-08-28 21:56 | NUR ---
PT SITTING UP IN CHAIR, ALERT AND ORIENTED X 4, UP AB MINERVA. PT DENIES PAIN AT THIS TIME. IV TO R UPPER ARM SL. ROOM AIR. VITALS STABLE. MEDS TAKEN WITHOUT DIFFICULTY. INCISION TO R GROIN FROM HEART CATH ON 08/27. ALL PULSES PALPABLE. NO FURTHER COMPLAINTS AT THIS TIME. BED LOWERED AND LOCKED. CL IN REACH. WILL CONTINUE TO MONITOR.
[2018-08-29 00:55] VITALS: BP 117/52
[2018-08-29 04:00] VITALS: BP 126/60
[2018-08-29 05:24] LABS: BASOPHILS 0.1 % (0-2); EOSINOPHILS 0 % (0-7); HEMATOCRIT 32.4 % (36.0-48.0); HEMOGLOBIN 11.1 g/dL (12-16); IMMATURE GRANULOCYTES 1.9 % (0-5); LYMPHOCYTES 9.1 % (15-50); MCH 33.9 pg (26.0-34.0); MCHC 34.3 g/dL (31.0-37.0); MCV 99.1 fL (80.0-100.0); MEAN PLATELET VOLUME 9.5 fL (7.4-10.4); MONOCYTES 6.3 % (2-11); NEUTROPHILS 82.6 % (40-80); PLATELET COUNT 283 10x3/uL (130-400); RBC 3.27 10x6/uL (4.00-5.40); RDW 13.7 % (11.5-14.5); WBC 12.3 10x3/uL (4.8-10.8)
[2018-08-29 05:58] LABS: ALBUMIN 3.2 g/dL (3.4-5.0); ANION GAP 11.5 mmol/L (8-16); BILIRUBIN - TOTAL 0.26 mg/dL (0.2-1.3); CALCIUM 8.6 mg/dL (8.5-10.1); CARBON DIOXIDE 28.8 mmol/L (21.0-32.0); CREATININE - SERUM 1.4 mg/dL (0.6-1.3); MAGNESIUM - SERUM 2.4 mg/dL (1.8-2.4); POTASSIUM - SERUM 4.3 mmol/L (3.5-5.1); PROTEIN - SERUM 6.7 g/dL (6.4-8.2)
[2018-08-29 07:52] VITALS: BP 121/61
--- NOTE | 2018-08-29 08:49 | NUR ---
RESP UL ON . IV PATENT. CALL LIGHT IN REACH. WILL CONT. PLAN OF CARE.
--- NOTE | 2018-08-29 10:06 | MORECARE ---
CASE MANAGEMENT DISCHARGE SUMMARY PATIENT: KERA ENRIQUEZ UNIT: [id number] ADM DATE: 08/24/18 AGE: 63 : 59 SEX: F ROOM/BED: D.2102 AUTHOR: ARTI LOPEZ PHYSICIAN: REFERRING PHYSICIAN: BIJU MONAE MD DATE OF SERVICE: 08/29/18 Discharge Plan Patient Name: KERA ENRIQUEZ Facility: [facility]:[place] : 1955 Planned Disposition: Home Anticipated Discharge Date: 08/29/18 Discharge Date: Expected LOS: 5 Initial Reviewer: [email or web address] Initial Review Date: 08/29/2018 Generated: 08/29/18 11:05 am Coverage Notice Reviewer: [id number] Gladys Philippe Notice Issued Date-Time: 08/29/2018 9:10 Notice Type: IM Discharge Notice Notice Delivered To: Patient Relationship to Patient: Acds Block 1 Operator Name: Delivery Method: HAND - Hand Delivered Sylvie Days: Prior Verbal Notification: Recipient Understood Notice: Yes Recipient Signature: Yes Med Rec Note Co-signed by Attending: Coverage Notice Comment: Patient Name: KERA ENRIQUEZ Page 51820 at 1006 All edits/amendments must be made on the electronic document DICTATION DATE: 08/29/18 1005 AUTOMOTIVE ARTIST: GREGORY 08/29/18 1005 RPT#: [id number] DC DATE: STATUS: ADM IN [facility] [address] [place] [address] END OF REPORT
--- NOTE | 2018-08-29 10:12 | MORECARE ---
CASE MANAGEMENT DISCHARGE SUMMARY PATIENT: KERA ENRIQUEZ UNIT: [id number] ADM DATE: 08/24/18 AGE: 63 : 59 SEX: F ROOM/BED: D.2102 AUTHOR: ARTI LOPEZ PHYSICIAN: REFERRING PHYSICIAN: BIJU MONAE MD DATE OF SERVICE: 08/29/18 Discharge Plan Patient Name: KERA ENRIQUEZ Facility: [facility]:[place] : 1955 Planned Disposition: Home Anticipated Discharge Date: 08/29/18 Discharge Date: Expected LOS: 5 Initial Reviewer: [email or web address] Initial Review Date: 08/29/2018 Generated: 08/29/18 11:12 am DCPIA - Discharge Planning Initial Assessment Updated by DEL: Tavon Philippe on 08/29/18 10:07 am * Is the patient Alert and Oriented? Yes * How many steps to enter\exit or inside your home? * PCP DR. ANGUIANO * Pharmacy [facility] * Preadmission Environment Home with Family * ADLs Independent * Equipment Nebulizer Oxygen Rolling Walker * Other Equipment HOME AND PORTABLE OXYGEN [employer] - PROVIDER * List name and contact numbers for known caregivers / representatives who currently or will assist patient after discharge: ARELY ENRIQUEZ, SPOUSE, * Verbal permission to speak to the caregivers and representatives has been obtained from the patient. N/A * Community resources currently utilized None * Please name any agencies selected above. NONE * Additional services required to return to the preadmission environment? No * Can the patient safely return to the preadmission environment? Yes * Has this patient been hospitalized within the prior 30 days at any hospital? No Coverage Notice Reviewer: [id number] - Tavon Philippe Notice Issued Date-Time: 08/29/2018 9:10 Notice Type: IM Discharge Notice Notice Delivered To: Patient Relationship to Patient: Community Chest Officer Name: Delivery Method: HAND - Hand Delivered Sylvie Days: Prior Verbal Notification: Recipient Understood Notice: Yes Recipient Signature: Yes Med Rec Note Co-signed by Attending: Coverage Notice Comment: Last DP export: 08/29/18 9:05 am Patient Name: KERA ENRIQUEZ Page [id number] at 1012 All edits/amendments must be made on the electronic document DICTATION DATE: 08/29/18 1011 DERRICKMAN HELPER: GREGORY 08/29/18 1011 RPT#: [id number] DC DATE: STATUS: ADM IN [facility] [address] [place] [address] END OF REPORT
--- NOTE | 2018-08-29 10:19 | MORECARE ---
CASE MANAGEMENT DISCHARGE SUMMARY PATIENT: KERA ENRIQUEZ UNIT: [id number] ADM DATE: 08/24/18 AGE: 63 : 59 SEX: F ROOM/BED: D.210 AUTHOR: ARTI LOPEZ PHYSICIAN: REFERRING PHYSICIAN: BIJU MONAE MD DATE OF SERVICE: 08/29/18 Discharge Plan Patient Name: KERA ENRIQUEZ Facility: [facility]:[place] : 1955 Planned Disposition: Home Anticipated Discharge Date: 08/29/18 Discharge Date: Expected LOS: 5 Initial Reviewer: [email or web address] Initial Review Date: 08/29/2018 Generated: 08/29/18 11:19 am Comments DCP- Discharge Planning Updated by [email or web address]: Tavon Philippe on 08/29/18 9:[address] Patient Name: KERA ENRIQUEZ Admission Status: Elective Accout number: [id number] Admission Date: 08-24-2018 : 1955 Admission Diagnosis: Attending: BIJU MONAE Current LOS: 5 Anticipated DC Date: 08-29-2018 Planned Disposition: Home Primary Insurance: [employer] CHOICE PPO MCR [employer]ANT Discharge Planning Comments: CM RECEIVED ORDER FOR NEBUILIZER MEDICATIONS AND OXYGEN TESTING. CM MET WITH PT IN ROOM TO DISCUSS DISCHARGE PLANNING AND NEEDS. PT REPORTS LIVING AT HOME INDEPENDENTLY WITH HER SPOUSE WHO ASSIST OCCAISIONALLY, IF NEEDED, WITH BATHING. PT HAS NEBULIZER, HOME AND PORTABLE OXGYEN WELL ROLLING WALKER WITH SEAT AND BRAKES. MEDICAL EQUIPMENT PROVIDER IS [facility]. PT HAS NO OUTSIDE SERVICES ASSISTING IN THE HOME. CM DISCUSSED AVAILABILITY OF HOME HEALTH, REHAB SERVICES AND MEDICAL EQUIPMENT. PT DENIES DISCHARGE NEEDS, REPORTS HER SPOUSE WILL PICK HER UP FOR DISCHARGE HOME. PT REPORTS SHE ALREADY GETS DUONEB AND HAS BEEN PAYING $10 PER MONTH FOR MEDICATION AT [facility]. CM SUGGESTED PT CALL HER INSURANCE COMPANY AND CHECK INTO MAIL ORDER FROM [employer] WHERE PT ALREADY GETS HER OTHER MAINTENANCE MEDICATIONS FROM IN EVENT SHE CAN GET DUONEB CHEAPER WITH HOME DELIVERY. PT BELIEVES THIS TO BE A GOOD IDEA AND SHE CANNOT BELIEVE SHE DID NOT THINK OF THIS HERSELF. PT WILL CALL. PT REPORTS SHE IS ABLE TO AFFORD HER DUONEB MEDICATIONS FOR HER NEBULIZER. IMPORTANT MESSAGE FROM MEDICARE PROVIDED AND EXPLAINED. CM SPOKE TO DINORAH OF RESPIRATORY THERAPY WHO WALK TESTED PT AND INFORMED CM THAT PT DID NOT QUALIFY FOR HOME OR PORTABLE OXYGEN, EVEN AFTER WALKING 1000 FEET. PT PLANS TO DISCHARGE HOME WITH SPOUSE, IS ALREADY ON DUONEB MEDICATIONS WITH NEBULIZER AND CAN AFFORD THE MEDICATION. PT WAS TESTED FOR OXYGEN AND DID NOT QUALIFY FOR HOME OR PORTABLE OXYGEN, BUT DOES HAVE BOTH HOME AND PORTABLE OXYGEN AT HOME ALREADY. Template Fitter: Tavon Philippe DCPIA - Discharge Planning Initial Assessment Updated by [email or web address]: Tavon Philippe on 08/29/18 10:07 am * Is the patient Alert and Oriented? Yes * How many steps to enter\exit or inside your home? * PCP DR. ANGUIANO * Pharmacy [facility] * Preadmission Environment Home with Family * ADLs Independent * Equipment Nebulizer Oxygen Rolling Walker * Other Equipment HOME AND PORTABLE OXYGEN [employer] - PROVIDER * List name and contact numbers for known caregivers / representatives who currently or will assist patient after discharge: ARELY ENRIQUEZ, SPOUSE, * Verbal permission to speak to the caregivers and representatives has been obtained from the patient. N/A * Community resources currently utilized None * Please name any agencies selected above. NONE * Additional services required to return to the preadmission environment? No * Can the patient safely return to the preadmission environment? Yes * Has this patient been hospitalized within the prior 30 days at any hospital? No Coverage Notice Reviewer: [id number] - Tavon Philippe Notice Issued Date-Time: 08/29/2018 9:10 Notice Type: IM Discharge Notice Notice Delivered To: Patient Relationship to Patient: Director Public Service Name: Delivery Method: HAND - Hand Delivered Sylvie Days: Prior Verbal Notification: Recipient Understood Notice: Yes Recipient Signature: Yes Med Rec Note Co-signed by Attending: Coverage Notice Comment: Last DP export: 08/29/18 9:12 am Patient Name: KERA ENRIQUEZ Page [id number] at 1019 All edits/amendments must be made on the electronic document DICTATION DATE: 08/29/18 1018 LABOR ECONOMIST: GREGORY 08/29/18 1018 RPT#: [id number] DC DATE: STATUS: ADM IN [facility] [address] [place] [id number] END OF REPORT
[2018-08-29 11:34] VITALS: BP 126/67
[2018-08-29] MEDS ORDERED: OMNICEF300 MG PO (12:34)
[2018-08-29] MEDS ORDERED: VIBRAMYCIN 100100 MG PO (12:34)
[2018-08-29] MEDS ORDERED: ALBUTEROL1.25 MG/3 INH (12:35)
[2018-08-29] MEDS ORDERED: PREDNISONE20 MG PO (12:37)
--- NOTE | 2018-08-29 14:48 | NUR ---
PATIENT UP IN ROOM, SKIN W/D TO TOUCH, COLOR PINK, RESP. REGULAR AND EVEN AT 20. NICODERM PATCH INTACT TO RIGHT UPPER ARM PT. INSTRUCTED IF WANTED TO SMOKE TO REMOVE PATCH AND WAIT ONE HOUR. PATIENT AND VERBALIZE UNDERSTANDING OF DISCHARGE INSTRUCTIONS. PATIENT DISCHARGED VIA W/C VIA PRIVATE VEHICLE.
--- NOTE | 2018-08-29 14:51 | NUR ---
PATIENT IV D/C'D PRIOR TO DISCHARGE AND CATH DRSG. REMOVED NO BLEEDING, DRAINAGE OR SWELLING NOTED.
--- NOTE | 2018-08-29 17:25 | MORECARE ---
CASE MANAGEMENT DISCHARGE SUMMARY PATIENT: KERA ENRIQUEZ UNIT: [id number] ADM DATE: 08/24/18 AGE: 63 : 59 SEX: F ROOM/BED: D.2103 AUTHOR: ARTI LOPEZ PHYSICIAN: REFERRING PHYSICIAN: BIJU MONAE MD DATE OF SERVICE: 08/29/18 Discharge Plan Patient Name: KERA ENRIQUEZ Facility: [facility]:[place] : 1955 Planned Disposition: Home Anticipated Discharge Date: 08/29/18 Discharge Date: 08/29/2018 Expected LOS: 5 Initial Reviewer: [email or web address] Initial Review Date: 08/29/2018 Generated: 08/29/18 6:24 pm Comments DCP- Discharge Planning Updated by [email or web address]: Tavon Philippe on 08/29/18 9:[address] Patient Name: KERA ENRIQUEZ Admission Status: Elective Accout number: [id number] Admission Date: 08-24-2018 : 1955 Admission Diagnosis: Attending: BIJU MONAE Current LOS: 5 Anticipated DC Date: 08-29-2018 Planned Disposition: Home Primary Insurance: [employer] CHOICE PPO MCR ADVANT Discharge Planning Comments: CM RECEIVED ORDER FOR NEBUILIZER MEDICATIONS AND OXYGEN TESTING. CM MET WITH PT IN ROOM TO DISCUSS DISCHARGE PLANNING AND NEEDS. PT REPORTS LIVING AT HOME INDEPENDENTLY WITH HER SPOUSE WHO ASSIST OCCAISIONALLY, IF NEEDED, WITH BATHING. PT HAS NEBULIZER, HOME AND PORTABLE OXGYEN WELL ROLLING WALKER WITH SEAT AND BRAKES. MEDICAL EQUIPMENT PROVIDER IS [facility]. PT HAS NO OUTSIDE SERVICES ASSISTING IN THE HOME. CM DISCUSSED AVAILABILITY OF HOME HEALTH, REHAB SERVICES AND MEDICAL EQUIPMENT. PT DENIES DISCHARGE NEEDS, REPORTS HER SPOUSE WILL PICK HER UP FOR DISCHARGE HOME. PT REPORTS SHE ALREADY GETS DUONEB AND HAS BEEN PAYING $10 PER MONTH [facility]. CM SUGGESTED PT CALL HER INSURANCE COMPANY AND CHECK INTO MAIL ORDER FROM [employer] WHERE PT ALREADY GETS HER OTHER MAINTENANCE MEDICATIONS FROM IN EVENT SHE CAN GET DUONEB CHEAPER WITH HOME DELIVERY. PT BELIEVES THIS TO BE A GOOD IDEA AND SHE CANNOT BELIEVE SHE DID NOT THINK OF THIS HERSELF. PT WILL CALL. PT REPORTS SHE IS ABLE TO AFFORD HER DUONEB MEDICATIONS FOR HER NEBULIZER. IMPORTANT MESSAGE FROM MEDICARE PROVIDED AND EXPLAINED. CM SPOKE TO DINORAH OF RESPIRATORY THERAPY WHO WALK TESTED PT AND INFORMED CM THAT PT DID NOT QUALIFY FOR HOME OR PORTABLE OXYGEN, EVEN AFTER WALKING 1000 FEET. PT PLANS TO DISCHARGE HOME WITH SPOUSE, IS ALREADY ON DUONEB MEDICATIONS WITH NEBULIZER AND CAN AFFORD THE MEDICATION. PT WAS TESTED FOR OXYGEN AND DID NOT QUALIFY FOR HOME OR PORTABLE OXYGEN, BUT DOES HAVE BOTH HOME AND PORTABLE OXYGEN AT HOME ALREADY. Farm Rancher: Tvaon Philippe DCPIA - Discharge Planning Initial Assessment Updated by [email or web address]: Tavon Philippe on 08/29/18 10:07 am * Is the patient Alert and Oriented? Yes * How many steps to enter\exit or inside your home? * PCP DR. ANGUIANO * Pharmacy [facility] * Preadmission Environment Home with Family * ADLs Independent * Equipment Nebulizer Oxygen Rolling Walker * Other Equipment HOME AND PORTABLE OXYGEN [facility] - PROVIDER * List name and contact numbers for known caregivers / representatives who currently or will assist patient after discharge: ARELY ENRIQUEZ, SPOUSE, * Verbal permission to speak to the caregivers and representatives has been obtained from the patient. N/A * Community resources currently utilized None * Please name any agencies selected above. NONE * Additional services required to return to the preadmission environment? No * Can the patient safely return to the preadmission environment? Yes * Has this patient been hospitalized within the prior 30 days at any hospital? No Coverage Notice Reviewer: [id number] - Tavon Philippe Notice Issued Date-Time: 08/29/2018 9:10 Notice Type: IM Discharge Notice Notice Delivered To: Patient Relationship to Patient: Mortgage Underwriter Name: Delivery Method: HAND - Hand Delivered Sylvie Days: Prior Verbal Notification: Recipient Understood Notice: Yes Recipient Signature: Yes Med Rec Note Co-signed by Attending: Coverage Notice Comment: Last DP export: 08/29/18 9:19 am Patient Name: KERA ENRIQUEZ Page [id number] at 1725 All edits/amendments must be made on the electronic document DICTATION DATE: 08/29/181723 WAREHOUSE SHIPPER: GREGORY 08/29/181723 RPT#: [id number] DC DATE:08/29/18 STATUS: DIS IN [facility] [address] [place] [address] END OF REPORT
== END 2018-08-29 14:53 | disposition home or self-care (01) | DRG 286 ==
LOC: D.M2 11:55
PROVIDERS: Family Medicine; Internal Medicine Interventional Cardiology; Internal Medicine Nephrology; ADMIT Family Medicine
PROC: B2131ZZ Fluoroscopy of Multiple Coronary Artery Bypass Grafts using Low Osmolar Contrast (ICD-10-PCS; 2018-08-27)
PROC: B2111ZZ Fluoroscopy of Multiple Coronary Arteries using Low Osmolar Contrast (ICD-10-PCS; 2018-08-27)
PROC: B2151ZZ Fluoroscopy of Left Heart using Low Osmolar Contrast (ICD-10-PCS; 2018-08-27)
PROC: B2181ZZ Fluoroscopy of Left Internal Mammary Bypass Graft using Low Osmolar Contrast (ICD-10-PCS; 2018-08-27)
PROC: 4A023N7 Measurement of Cardiac Sampling and Pressure, Left Heart, Percutaneous Approach (ICD-10-PCS; principal; 2018-08-27 08:00)
DX: I11.0 Hypertensive heart disease with heart failure (principal); J18.9 Pneumonia, unspecified organism; F17.213 Nicotine dependence, cigarettes, with withdrawal; N17.9 Acute kidney failure, unspecified; M31.0 Hypersensitivity angiitis; J44.1 Chronic obstructive pulmonary disease with (acute) exacerbation; J44.0 Chronic obstructive pulmonary disease with (acute) lower respiratory infection; I50.33 Acute on chronic diastolic (congestive) heart failure; K21.9 Gastro-esophageal reflux disease without esophagitis; F41.9 Anxiety disorder, unspecified; F32.9 Major depressive disorder, single episode, unspecified; I25.119 Atherosclerotic heart disease of native coronary artery with unspecified angina pectoris; E78.5 Hyperlipidemia, unspecified; E83.42 Hypomagnesemia; J40 Bronchitis, not specified as acute or chronic; Z95.1 Presence of aortocoronary bypass graft

== ENCOUNTER → 2018-08-24 | Emergency (ER) | payer MEDICARE ==
[2018-04-25 07:54] VITALS: BMI 33.7
[~2018-08-24] MED LIST changes: +ANORO ELLIPTA1 EACH INH; +LOMOTIL 2.5-0.1 EAC1 PO; -NORVASC10 MG PO; +SYNTHROID50 MCG PO
== END | disposition home or self-care (01) ==
LOC: D.ER 13:20
DX: R07.9 Chest pain, unspecified (principal)

== ENCOUNTER 2018-09-25 18:57 | Inpatient (IN) | payer MEDICARE ==
[~2018-09-25] VITALS: Ht 160 cm; Wt 83.5 kg
[~2018-09-25 18:57] MED LIST changes: +ALBUTEROL1.25 MG/3 INH; +ANORO ELLIPTA1 EACH INH; +LOMOTIL 2.5-0.1 EAC1 PO; +SYNTHROID50 MCG PO
--- NOTE | 2018-09-25 19:53 | NUR ---
PT TO FLOOR VIA WHEELCHAIR. PT ADMISSION DONE. PT A/O X 4. UP AB MINERVA. FAMILY AT BEDSIDE. DENIES PAIN AT THIS TIME. C/O SOB. 02 SAT 98%. STATES HAVING A HX OF ASTHMA. WILL NOTIFY MD OF PT ARRIVAL AND GET ORDERS PUT IN. NO FURTHER CONCERNS AT THIS TIME. INFORMED PT OF PLAN FOR TONIGHT TO GET IV STARTED AND INFUSION OF BLOOD. NO FURTHER CONCERNS AT THIS TIME. WILL CPOC.
[2018-09-25 21:33] LABS: BASOPHILS 0.2 % (0-2); EOSINOPHILS 0.7 % (0-7); HEMATOCRIT 26.6 % (36.0-48.0); HEMOGLOBIN 9.3 g/dL (12-16); IMMATURE GRANULOCYTES 0.7 % (0-5); LYMPHOCYTES 26.4 % (15-50); MCH 33.9 pg (26.0-34.0); MCV 97.1 fL (80.0-100.0); MEAN PLATELET VOLUME 9.7 fL (7.4-10.4); MONOCYTES 10.8 % (2-11); NEUTROPHILS 61.2 % (40-80); RBC 2.74 10x6/uL (4.00-5.40); RDW 13.6 % (11.5-14.5); WBC 5.4 10x3/uL (4.8-10.8)
[2018-09-25 21:34] LABS: PLATELET COUNT 214 10x3/uL (130-400)
[2018-09-25 22:12] LABS: ALBUMIN 2.9 g/dL (3.4-5.0); ANION GAP 15.1 mmol/L (8-16); BILIRUBIN - TOTAL 0.26 mg/dL (0.2-1.3); CARBON DIOXIDE 27.5 mmol/L (21.0-32.0); CREATININE - SERUM 1.4 mg/dL (0.6-1.3); PROTEIN - SERUM 6.6 g/dL (6.4-8.2); THYROID STIMULATING HORMONE 0.1 uIU/mL (0.36-3.74)
[2018-09-25 22:16] LABS: CALCIUM 6.6 mg/dL (8.5-10.1); POTASSIUM - SERUM 2.6 mmol/L (3.5-5.1)
--- NOTE | 2018-09-25 23:25 | NUR ---
CALLED ICU TO ATTEMPT IV ON PATIENT
[2018-09-26] VITALS (7 sets, daily range): BP systolic 106–132; BP diastolic 44–85; BMI 32.6
--- NOTE | 2018-09-26 00:18 | NUR ---
ATTEMPTED TO START PT IV TWICE. UNCCUSSFUL. ICU TO COME START IV. BLOOD READY IN BLOOD BANK. PT RESTING. GAVE PT SANDWHICH. NO FURTHER CONCERNS AT THIS TIME. BED LOWERED AND LOCEKD. CL IN REACH. AT BEDSIDE. WILL CPOC.
--- NOTE | 2018-09-26 01:27 | NUR ---
ICU NURSE SITED PT IV TO R UPPER ARM, PATENT, 20 G. RECEIVED BLOOD FROM BLOOD BANK. ILIA RN, STARTED BLOOD. PT RECEIVING BLOOD AT THIS TIME. VITALS STABLE. BP 114/54. HR 83. TEMP 98.0. PT DENIES PAIN AT THIS TIME. WILL CPOC. WILL CONTINUE TO MONTITOR.
--- NOTE | 2018-09-26 04:32 | NUR ---
SECOND UNIT OF PRBC INFUSING. DENIES PAIN AT THIS TIME. VITALS STABLE. WILL CPOC.
--- NOTE | 2018-09-26 06:38 | NUR ---
ASSUMED CARE FOR THIS PT. PT HAS BLOOD TRANSFUSING VIA R.UPPER ARM PIV INFUSING @125ML/HR. PTS POTASSIUM IS LOW, PROVIDED HER WITH 20MEQ KCL PER ELECTROLYTE PROTOCOL. PT SWALLOWED WITHOUT ANY ISSUES. PT VOICED THANKS AND DENIES ANY CURRENT PAIN OR NEEDS. CL IN REACH, BED IN LOWEST, SIDE RAILS X2. WILL CTM.
[2018-09-26 08:16] LABS: BASOPHILS 0.4 % (0-2); EOSINOPHILS 0.4 % (0-7); IMMATURE GRANULOCYTES 1.1 % (0-5); LYMPHOCYTES 27.8 % (15-50); MCH 32.6 pg (26.0-34.0); MCHC 34.9 g/dL (31.0-37.0); MEAN PLATELET VOLUME 9.6 fL (7.4-10.4); NEUTROPHILS 60.3 % (40-80); PLATELET COUNT 201 10x3/uL (130-400); RDW 15.1 % (11.5-14.5); WBC 5.3 10x3/uL (4.8-10.8)
[2018-09-26 08:27] LABS: INR 0.98 (0.85-1.17); PROTIME 12.5 SECONDS (11.6-15.0)
[2018-09-26 08:29] LABS: D-DIMER-QUANTITATIVE 0.73 ug/mLFEU (0.20-0.54)
[2018-09-26 08:36] LABS: HEMATOCRIT 32.4 % (36.0-48.0); HEMOGLOBIN 11.3 g/dL (12-16); RBC 3.47 10x6/uL (4.00-5.40)
[2018-09-26 08:37] LABS: CARBON DIOXIDE 24.9 mmol/L (21.0-32.0); CREATININE - SERUM 1.3 mg/dL (0.6-1.3); MCV 93.4 fL (80.0-100.0)
[2018-09-26 09:04] LABS: ANION GAP 14.4 mmol/L (8-16); POTASSIUM - SERUM 3.3 mmol/L (3.5-5.1)
[2018-09-26 09:06] LABS: T4 THYROXIN - FREE 1.27 ng/dL (0.76-1.46)
[2018-09-26 09:10] LABS: MAGNESIUM - SERUM 0.3 mg/dL (1.8-2.4)
[2018-09-26 09:11] LABS: CALCIUM 6.7 mg/dL (8.5-10.1)
[2018-09-26 10:11] LABS: % SATURATION 46 % (15-55); IRON 103 ug/dl (35-150); TOTAL IRON BIND CAPACITY 223 ug/dl (260-445); UNSAT IRON BIND CAPACITY 120 ug/dl (150-375)
--- NOTE | 2018-09-26 19:32 | NUR ---
PT RESTING IN BED. RIGHT UPPER ARM 20G WITH NS INFUSING ORDERED. PT IS AAO, UP AD MINERVA. PT HAS NO S/S OF DISTRESS. NAME AND DATE PLACED ON BOARD. PT WILL CALL FOR ASSIST WHEN NEEDED. BEDLOW AND CALL LIGHT IN REACH. WILL CPOC
--- NOTE | 2018-09-26 23:38 | NUR ---
PT ASLEEP. AROUSES TO VERBAL STIMULI. PT DENIES ANY NEEDS. NO S/S OF DISTRESS. BEDLOW AND CALL LIGHT IN REACH. PT WILL CALL FOR ASSIST WHEN NEEDED. WILL CPOC
[2018-09-27] VITALS: BP 132/55
--- NOTE | 2018-09-27 02:34 | NUR ---
PT RESTING IN BED. DENIES ANY NEEDS. RESP EVEN AND UNLABORED. NS INFUSING ORDERED. WILL CPOC
[2018-09-27 04:00] VITALS: BP 120/39
[2018-09-27 06:35] LABS: BASOPHILS 0.4 % (0-2); EOSINOPHILS 0.6 % (0-7); HEMATOCRIT 31.1 % (36.0-48.0); HEMOGLOBIN 10.7 g/dL (12-16); LYMPHOCYTES 21.8 % (15-50); MCH 32.6 pg (26.0-34.0); MCHC 34.4 g/dL (31.0-37.0); MCV 94.8 fL (80.0-100.0); MEAN PLATELET VOLUME 9.7 fL (7.4-10.4); MONOCYTES 10.9 % (2-11); NEUTROPHILS 65.3 % (40-80); PLATELET COUNT 191 10x3/uL (130-400); RBC 3.28 10x6/uL (4.00-5.40); RDW 15.8 % (11.5-14.5); WBC 5.1 10x3/uL (4.8-10.8)
[2018-09-27 06:53] LABS: CARBON DIOXIDE 25.4 mmol/L (21.0-32.0); CREATININE - SERUM 1.1 mg/dL (0.6-1.3)
[2018-09-27 06:55] LABS: ANION GAP 13.7 mmol/L (8-16); POTASSIUM - SERUM 4.1 mmol/L (3.5-5.1)
[2018-09-27 06:56] LABS: CALCIUM 6.5 mg/dL (8.5-10.1)
--- NOTE | 2018-09-27 07:00 | NUR ---
PT UP TO RESTROOM. PT HAS NO S/S OF DISTRESS. DENIES ANY NEEDS,. WILL CPOC
[2018-09-27 10:20] LABS: FOLATE (FOLIC ACID) - SERUM >20.0 ng/mL (>3.0)
--- NOTE | 2018-09-27 10:50 | NUR ---
DR HAMMONDS IN ROOM.
[2018-09-27 13:02] VITALS: Ht 160 cm; Wt 83.5 kg
--- NOTE | 2018-09-27 17:06 | MORECARE ---
CASE MANAGEMENT DISCHARGE SUMMARY PATIENT: KERA ENRIQUEZ UNIT: [id number] ADM DATE: 09/26/18 AGE: 63 : 59 SEX: F ROOM/BED: D.1213 AUTHOR: ARTI LOPEZ PHYSICIAN: REFERRING PHYSICIAN: BIJU MONAE MD DATE OF SERVICE: 09/27/18 Discharge Plan Patient Name: KERA ENRIQUEZ Facility: [facility]:[place] : 1955 Planned Disposition: Home Anticipated Discharge Date: Discharge Date: Expected LOS: Initial Reviewer: [email or web address] Initial Review Date: 09/27/2018 Generated: 09/27/18 6:06 pm Comments DCP- Discharge Planning Updated by [email or web address]: Dana Bonilla on 09/27/18 4:[address] Patient Name: KERA ENRIQUEZ Admission Status: Elective Accout number: [id number] Admission Date: 09-26-2018 : 1955 Admission Diagnosis:HYPOTENSION, UNSPECIFIED Attending: BIJU MONAE Current LOS: 1 Anticipated DC Date: Planned Disposition: Home Primary Insurance: [employer] CHOICE PPO MCR ADVANT Discharge Planning Comments: CM MET WITH PATIENT AND FAMILY ABOUT DC PLANNING/NEEDS. STATES NO NEEDS AT HOME. PATIENT STATES SHE HOPES TO BE DISCHARGED TOMORROW (MONDAY). AND DAUGHTER AT BEDSIDE. CM WILL FOLLOW AND ASSIST NEEDED WITH DC PLANNING/NEEDS. Coating Supervisor: Dana Bonilla DCPIA - Discharge Planning Initial Assessment Updated by [email or web address]: Dana Bonilla on 09/27/18 4:58 pm * Is the patient Alert and Oriented? Yes * PCP ANGUIANO * Pharmacy [facility] * Preadmission Environment Home with Family * ADLs Independent * Equipment Cane Crutch Nebulizer Oxygen Walker * List name and contact numbers for known caregivers / representatives who currently or will assist patient after discharge: ARELY , * Additional services required to return to the preadmission environment? No * Can the patient safely return to the preadmission environment? Yes * Has this patient been hospitalized within the prior 30 days at any hospital? No Patient Name: KERA ENRIQUEZ Page [id number] at 1706 All edits/amendments must be made on the electronic document DICTATION DATE: 09/27/181704 ASSEMBLER CAMPER: GREGORY 09/27/181704 RPT#: [id number] DC DATE: STATUS: ADM IN [facility] [address] [place] [address] END OF REPORT
--- NOTE | 2018-09-27 19:25 | NUR ---
PT UP WALKING AROUND WITH FAMILY MEMBER GAIT STEADY. PT HAS NO S/S OF DISTRESS. NS INFUSING ORDERED, PT WALKED BACK TO ROOM. RESP EVEN AND UNLABORED. DENIES ANY DISTRESS OR COMPLAINTS. NAME AND DATE PLACED ON BOARD. WILL CPOC
[2018-09-27 20:00] VITALS: BP 119/43
--- NOTE | 2018-09-27 21:04 | NUR ---
MEDS GIVEN. PT LAYING IN BED WATCHING TV. DENIES ANY NEEDS. NO S/S OF DISTRESS. STATES NO CHANGES FROM YESTURDAY BESIDES THE DIARRHEA FROM THE MAG. PT STATES 3 EPISODES TODAY BUT NONE SINCE. PT VERBALIZED UNDERSTANDING TO LET NURSE KNOW WHEN DIARRHEA. PT WILL CALL FOR ASSIST WHEN NEEDED. WILL CPOC
--- NOTE | 2018-09-27 23:35 | NUR ---
GAVE PT A [place] HAT TO COLLECT OCCULT NEXT TIME PT HAS A BM. PT ASKED TO BE UNHOOKED FROM NS WHILE SHE SLEEPS DUE TO IV PUMP BEEPING FROM THE LINE BENDING. FOLLOWED PT REQUEST. PT DENIES ANY OTHER NEEDS. WILL CPOC
[2018-09-28 00:30] VITALS: BP 124/58
[2018-09-28 04:00] VITALS: BP 126/53
--- NOTE | 2018-09-28 04:22 | NUR ---
PT ASLEEP AROUSES TO NURSE ENTERING ROOM. PT DENIES ANY NEEDS. NO S/S OF DISTRESS. RESP EVEN AND UNLABORED. BEDLOW AND CALL LIGHT IN REACH. PT WILL CALL FOR ASSIST WHEN NEEDED. WILL CPOC
--- NOTE | 2018-09-28 05:42 | NUR ---
PT RESTING IN BED. MORNING MEDS GIVEN. PT DENIES ANY NEEDS. NO S/S OF DISTRESS. PT WILL CALL FOR ASSIST WHEN NEEDED. WILL CPOC
[2018-09-28 06:41] LABS: ANION GAP 15.9 mmol/L (8-16); CREATININE - SERUM 1.2 mg/dL (0.6-1.3); MAGNESIUM - SERUM 2.2 mg/dL (1.8-2.4)
[2018-09-28 06:42] LABS: POTASSIUM - SERUM 4.9 mmol/L (3.5-5.1)
[2018-09-28 06:48] LABS: BASOPHILS 0.2 % (0-2); EOSINOPHILS 0.7 % (0-7); HEMATOCRIT 31.2 % (36.0-48.0); HEMOGLOBIN 10.5 g/dL (12-16); IMMATURE GRANULOCYTES 0.5 % (0-5); LYMPHOCYTES 20.2 % (15-50); MCH 32.4 pg (26.0-34.0); MCHC 33.7 g/dL (31.0-37.0); MCV 96.3 fL (80.0-100.0); MEAN PLATELET VOLUME 10.1 fL (7.4-10.4); MONOCYTES 10.5 % (2-11); NEUTROPHILS 67.9 % (40-80); PLATELET COUNT 210 10x3/uL (130-400); RBC 3.24 10x6/uL (4.00-5.40); RDW 15.6 % (11.5-14.5); WBC 5.8 10x3/uL (4.8-10.8)
[2018-09-28 07:15] VITALS: BP 120/51
--- NOTE | 2018-09-28 07:15 | NUR ---
ROUSES TO VERBAL STIMULATION. VSS. DENIES NEEDS.
--- NOTE | 2018-09-28 09:30 | NUR ---
AWAKE AND ALERT. ORIENTED X3. ATE ALMOST ALL OF BREAKFAST. LUNGS ARE CLEAR BILATERALLY, NO COUGH NOTED. SKIN IS INTACT WITHOUT REDNESS. SL TO RIGHT FOREARM IS PATENT WITHOUT REDNESS AT INSERTION SITE. DENIES NEEDS.
--- NOTE | 2018-09-28 11:00 | NUR ---
DISCHARGE INSTRUCTIONS GIVEN BOTH VERBALLY AND WRITTEN. ALL QUESTIONS ANSWERED. PATIENT VERBALZED UNDERSTANDING OF SAME. SL TO RIGHT UPPER ARM D/C WITH CATHETER INTACT. WAITING ON MD FOR PRESCRIPTION FOR FISH OIL. IN ROOM.
--- NOTE | 2018-09-28 11:15 | NUR ---
DISCHARGED TO HOME AMBULATORY WITH FAMILY. ALL BELONGINGS WITH PATIENT.
--- NOTE | 2018-09-28 14:06 | MORECARE ---
CASE MANAGEMENT DISCHARGE SUMMARY PATIENT: KERA ENRIQUEZ UNIT: [id number] ADM DATE: 09/26/18 AGE: 63 : 59 SEX: F ROOM/BED: D.1213 AUTHOR: ARTI LOPEZ PHYSICIAN: REFERRING PHYSICIAN: BIJU MONAE MD DATE OF SERVICE: 09/28/18 Discharge Plan Patient Name: KERA ENRIQUEZ Facility: [facility]:[place] : 1955 Planned Disposition: Home Anticipated Discharge Date: Discharge Date: 09/28/2018 Expected LOS: Initial Reviewer: [email or web address] Initial Review Date: 09/27/2018 Generated: 09/28/18 3:06 pm Comments DCP- Discharge Planning Updated by [id number]: Dana Bonilla on 09/27/18 4:[address] Patient Name: KERA ENRIQUEZ Admission Status: Elective Accout number: [id number] Admission Date: 09-26-2018 : 1955 Admission Diagnosis:HYPOTENSION, UNSPECIFIED Attending: BIJU MONAE Current LOS: 1 Anticipated DC Date: Planned Disposition: Home Primary Insurance: [employer] CHOICE PPO MCR ADVANT Discharge Planning Comments: CM MET WITH PATIENT AND FAMILY ABOUT DC PLANNING/NEEDS. STATES NO NEEDS AT HOME. PATIENT STATES SHE HOPES TO BE DISCHARGED TOMORROW (MONDAY). AND DAUGHTER AT BEDSIDE. CM WILL FOLLOW AND ASSIST NEEDED WITH DC PLANNING/NEEDS. Crew Manager: Dana Bonilla DCPIA - Discharge Planning Initial Assessment Updated by [email or web address]: Dana Bonilla on 09/27/18 4:58 pm * Is the patient Alert and Oriented? Yes * PCP ANNMARIE * Pharmacy [facility] * Preadmission Environment Home with Family * ADLs Independent * Equipment Cane Crutch Nebulizer Oxygen Walker * List name and contact numbers for known caregivers / representatives who currently or will assist patient after discharge: ARELY , * Additional services required to return to the preadmission environment? No * Can the patient safely return to the preadmission environment? Yes * Has this patient been hospitalized within the prior 30 days at any hospital? No Last DP export: 09/27/18 4:06 p Patient Name: KERA ENIRQUEZ Page [id number] at 1406 All edits/amendments must be made on the electronic document DICTATION DATE: 09/28/181404 CAP SEWER: GREGORY 09/28/181404 RPT#: [id number] DC DATE:09/28/18 STATUS: DIS IN [facility] [address] [place] [address] END OF REPORT
== END 2018-09-28 11:15 | disposition home or self-care (01) | DRG 811 ==
LOC: D.M3 18:57 → OBSVTIME 18:57 → D.M3 18:57
PROVIDERS: Internal Medicine Nephrology; ADMIT Family Medicine
DX: D50.9 Iron deficiency anemia, unspecified (principal); I50.33 Acute on chronic diastolic (congestive) heart failure; M31.0 Hypersensitivity angiitis; N17.9 Acute kidney failure, unspecified; F17.213 Nicotine dependence, cigarettes, with withdrawal; J44.1 Chronic obstructive pulmonary disease with (acute) exacerbation; E83.42 Hypomagnesemia; I11.0 Hypertensive heart disease with heart failure; G25.2 Other specified forms of tremor; E03.9 Hypothyroidism, unspecified; E87.6 Hypokalemia; I25.10 Atherosclerotic heart disease of native coronary artery without angina pectoris; Z95.1 Presence of aortocoronary bypass graft

== ENCOUNTER 2018-10-25 17:03 | Outpatient (CLI) | payer MEDICARE ==
[~2018-10-25] VITALS: Ht 160 cm; Wt 84.1 kg
[2018-10-25 18:52] VITALS: BP 109/53; Ht 160 cm; Wt 84.1 kg
--- NOTE | 2018-10-25 19:13 | NUR ---
1800-CALL IN TO [facility] TO CLARIFY MAGNESIUM ORDER. ORDERS RECD TO FOLLOW ELECTROLYTE PROTOCOL. DINNER TRAY SERVED. 1850-IV SITED TO R AC X 1 22G AND MAG INFUSION STARTED VIA PUMP.
--- NOTE | 2018-10-25 20:16 | NUR ---
1999-REPORT CALLED TO MED SURG NURSE 2015-TRANSPORTED VIA WHEELCHAIR.
--- NOTE | 2018-10-25 20:16 | NUR ---
RECEIVED TO FLOOR, ACCOMPANIED BY OUTPATIENT STAFF AND . A&O X 4. UP AD MINERVA. VITAL SIGNS STABLE. 2ND BAG OF MAGNESIUM HANGING. IV LOCATED IN RIGHT AC, SURROUNDING SKIN WNL, NO C/O PAIN OR DISCOMFORT WHILE IV INFUSING. VITAL SIGNS STABLE. PT INFORMED OF OUTPATIENT PROCESS AND ANTICIPATED DISCHARGE INSTRUCTIONS. DENIES FURTHER NEEDS AT THIS TIME, WILL CONTINUE TO MONITOR.
--- NOTE | 2018-10-25 23:04 | NUR ---
RECEIVED TO FLOOR ACCOMPANIED BY OUTPATIENT STAFF AND . ALERT AND ORIENTED, UP AD-MINERVA. VITAL SIGNS ARE STABLED. OUTPATIENT STAFF INFORMED ME THAT IV BAG HANGING WAS THE 2ND BAG. IV TO RIGHT AC. PT REPORTS NO DISCOMFORT WHILE INFUSING, SURROUNDING SKIN WNL. VITAL SIGNS STABLE. INFORMED PT AND ON THIS OUTPATIENT PROCESS AND WHAT TO EXPECT. DENIES AND FURTHER NEEDS AT THIS TIME. WILL CONTINUE TO MONITOR.
--- NOTE | 2018-10-26 00:20 | NUR ---
IV DONE INFUSING. PT GIVEN DISCHARGE INSTRUCTIONS. IV TO RIGHT AC REMOVED WITH CATHETER INTACT, TOLERATED WELL. DENIED NEEDS/QUESTIONS. LEFT FLOOR WITH .
== END 2018-10-26 00:20 | disposition home or self-care (01) ==
LOC: D.OPS 17:03 → D.MS 20:00 → D.OPS 10-26 00:20
PROVIDERS: ATTEND Family Medicine
DX: E83.42 Hypomagnesemia (principal)

== ENCOUNTER 2019-01-16 08:44 | Outpatient (CLI) | payer MEDICARE ==
[2019-01-16 09:03] LABS: BASOPHILS 0.6 % (0-2); EOSINOPHILS 6.6 % (0-7); HEMATOCRIT 30.6 % (36.0-48.0); HEMOGLOBIN 10.8 g/dL (12-16); IMMATURE GRANULOCYTES 0.3 % (0-5); LYMPHOCYTES 22.2 % (15-50); MCH 33.9 pg (26.0-34.0); MCHC 35.3 g/dL (31.0-37.0); MCV 95.9 fL (80.0-100.0); NEUTROPHILS 62.3 % (40-80); RBC 3.19 10x6/uL (4.00-5.40); RDW 13.6 % (11.5-14.5); WBC 7.2 10x3/uL (4.8-10.8)
[2019-01-16 09:15] LABS: INR 1.08 (0.85-1.17); PROTIME 13.5 SECONDS (11.6-15.0)
[2019-01-16 09:16] LABS: ANION GAP 15.6 mmol/L (8-16); CALCIUM 7.6 mg/dL (8.5-10.1); CARBON DIOXIDE 23.7 mmol/L (21.0-32.0); CREATININE - SERUM 1.4 mg/dL (0.6-1.3); POTASSIUM - SERUM 3.3 mmol/L (3.5-5.1)
[2019-01-16 09:20] LABS: PLATELET COUNT 269 10x3/uL (130-400)
[2019-01-16] MEDS ORDERED: LOVENOX30 MG/0.3 SC (09:21)
[2019-01-16 09:27] VITALS: BP 118/50; BMI 33.2
--- NOTE | 2019-01-16 09:43 | NUR ---
PT STATES FEELING SOB, ALBUTEROL UPDRAFT TX WAS ORDERED. SPOKE W/ RESPIRATORY TO INFORM THEM OF NEEDED TX.
--- NOTE | 2019-01-16 09:44 | NUR ---
O2 SAT 96%
--- NOTE | 2019-01-16 12:55 | NUR ---
REC'D FROM SPECIALS BY Cain VELÁSQUEZ RN. ACCOMPANIED BY FAMILY. DRESSING CDI TO LOWER BACK.
--- NOTE | 2019-01-16 13:25 | NUR ---
ASSUMED CARE OF PATIENT. REGULAR TRAY BROUGHT TO PATIENT. DRESSING CDI TO MID LOWER BACK. FAMILY AT BEDSIDE.
--- NOTE | 2019-01-16 13:40 | NUR ---
TOLERATED REGULAR TRAY. FAMILY AT BEDSIDE. DRESSING CDI TO MID LOWER BACK. NO C/O VOICED.
--- NOTE | 2019-01-16 14:10 | NUR ---
DRESSING CDI TO MID LOWER BACK. FAMILY AT BEDSIDE. NO CHANGES. NOTED.
== END 2019-01-16 15:15 | disposition home or self-care (01) ==
LOC: D.SP 08:44 → D.CT 11:00 → D.SP 15:15
PROVIDERS: Radiology Vascular & Interventional Radiology; ATTEND Internal Medicine Hematology & Oncology
DX: D64.9 Anemia, unspecified (principal); Z01.812 Encounter for preprocedural laboratory examination

== ENCOUNTER 2019-04-19 14:15 | Outpatient (CLI) | payer MEDICARE ==
[~2019-04-19] VITALS: Ht 160 cm; Wt 82.3 kg
[~2019-04-19 14:15] MED LIST changes: +LOVENOX30 MG/0.3 SC
[2019-04-19 14:41] VITALS: Ht 160 cm; Wt 82.3 kg
== END 2019-04-19 18:50 | disposition home or self-care (01) ==
LOC: D.OPS 14:15
PROVIDERS: ATTEND Internal Medicine Hematology & Oncology
DX: E83.42 Hypomagnesemia (principal)

== ENCOUNTER → 2021-02-15 09:40 | Outpatient (CLI) | payer MEDICARE ==
[2019-04-19 14:41] VITALS: BMI 32.1
== END | disposition home or self-care (01) ==
LOC: D.HCCARDIO 09:40
PROVIDERS: ATTEND Internal Medicine Cardiovascular Disease
DX: I25.10 Atherosclerotic heart disease of native coronary artery without angina pectoris (principal)

== ENCOUNTER 2021-02-25 06:58 | Day surgery (SDC) | payer MEDICARE ==
[~2021-02-25] VITALS: Ht 160 cm; Wt 76.6 kg
--- NOTE | ~2021-02-25 | HEMODYNAMI ---
PATIENT:KERA ENRIQUEZ MEDICAL RECORD: [id number] : 59 LOCATION:[facility]LEX ADMISSION DATE: 02/25/21 Generatedon:19:55 Patient name: KERA ENRIQUEZ Patient #: [id number] SSN: [id number] : 1955 Date of study: 02/25/2021 Page: Of Hemodynamic Procedure Report Patient Data Patient Demographics Procedure consent was obtained First Name: KERA Gender: Female Last Name: ZOE : 1955 Middle Initial: JINA Age: 65 year(s) Patient #: [id number] Race: SSN: [id number] Additional ID: [id number] Contact details [address]: [address] [place] [address] State: [place] City: [place] Zip code: [address] Past Medical History Performed procedures and imaging results Date Procedure Procedure Results Comments 02/15/2021 Stress testing Positive->Intermediate with SPECT MPI risk Allergies Allergen Reaction Date Comments Reported Codeine 04/25/2018 Other allergy 08/27/2018 Adhesive, Codeine, Lisinopril, Aripiprazole, levofloxacin Admission Admission Data Admission Date: 02/25/2021 Admission Time: 6:58 Arrival Date: 02/25/2021 Arrival Time: 0:00 Admit Source: Other Insurance Payor: Private health insurance [facility] #: [id number] Height (in.): 63 BSA: 1.79 (m2) Height (cm.): 160.02 BMI: 29.41 (kg/m2) Weight (lbs.): 166 Weight (kg.): 75.3 Lab Results Lab Result Date: 02/25/2021 Lab Result Time: 0:00 Biochemistry Name Units Result Min Max BUN mg/dl 20 --(----)*- 7 18 Creatinine mg/dl 1.2 --(---*)-- 0.6 1.3 eGFR ml/min 46 *-(----)-- 90 120 NONAFRICAN CBC Name Units Result Min Max Hemoglobin g/dl 14.5 --(*---)-- 13.5 17.5 Procedure Procedure Types Cath Procedure Diagnostic Procedure [facility] w/Coronaries w/Grafts Sedation Charges Moderate Sedation 10-24 minutes Procedure Description Procedure Date Procedure Date: 02/25/2021 Procedure Start Time: 9:34 Procedure End Time: 9:53 Procedure Staff Name Function Celestino Jin MD Performing Physician Ayesha De Paz RN Nurse Jessica Farr RT Scrub Ting Bal RT Monitor Indication Increased shortness of breath Procedure Data Cath Procedure Fluoroscopy Diagnostic fluoroscopy Total fluoroscopy Time: 4.9 time: 4.9 min min Diagnostic fluoroscopy Total fluoroscopy dose: 595 dose: 595 mGy mGy Contrast Material Contrast Material Type Amount (ml) Isovue 300 105 Entry Location Entry Primary Successful Side Size Upsize Upsize Entry Closure Succes sful Closure Location (Fr) 1 (Fr) 2 (Fr) Remarks Device Remarks Femoral Right 5 Fr Exoseal artery Estimated blood loss: 5 ml Diagnostic catheters Device Type Used For End Catheter Placement MULTIPACK JL 4.0 5Fr Left Coronary catheter Angiography DIAGNOSTIC AR MOD 5Fr Multi-vessel Catheter ([id number]) Angiography DIAGNOSTIC IM 5Fr SVG Angiography catheter ([id number]) MULTIPACK Pigtail 5 Fr LV Angiography catheter Procedure Complications No complications Procedure Medications Medication Administration Route Dosage Oxygen etCO2 Nasal cannula 2 l/min Lidocaine 2% added to field 20 Heparin Flush Bag added to field 2 bags (1000units/500ml NS) 0.9% NaCl I.V. 100 ml/hr Versed I.V. 2 mg Fentanyl I.V. 100 mcg Versed I.V. 1 mg Fentanyl I.V. 50 mcg Versed I.V. 1 mg Fentanyl I.V. 50 mcg Versed I.V. 1 mg Versed I.V. 1 mg Hemodynamics Rest BSA: 1.79 (m2) HGB: 14.5 (g/dl) O2 Consumption: Estimated: 174.96 (ml/min) O2 Co nsumption indexed: Estimated:97.74 (ml/min/m) Heart Rate: 80 (bpm) Pressure Samples Time Site Value (mmHg) Purpose Heart Use Rate(bpm) 9:48 LV 129/39,58 Snapshot 82 9:49 AO 134/49(82) Pullback 83 9:49 LV 115/-1,27 Pullback 83 Gradients Valve Time Site 1 Site 2 Mean SEP/DFP Peak To Heart Use (mmHg) (sec/min) Peak Rate (mmHg) (bpm) Aortic 9:49 LV AO 0 8 0 83 115/-1,27 134/49(82) Calculations Valve P-P Mean Valve Index Valve Source Name Gradient Area Flow (cm2) Aortic 0 0 0 0 Snapshots Pre Cath Intra NCS Post Cath Vital Signs Time Heart Resp SPO2 etCO2 NIBP (mmHg) Rhythm Pain Sedation Rate (ipm) (%) (mmHg) Status Level (bpm) 9:21:32 79 28 100 30.7 157/73(109) NSR 0 (11) 10(A) , No pain 9:25:54 76 75 98 31.4 140/66(102) NSR 0 (11) 10(A) , No pain 9:30:15 76 25 97 31.4 132/60(106) NSR 0 (11) 10(A) , No pain 9:34:30 78 17 96 36.7 130/69(103) NSR 0 (11) 10(A) , No pain 9:38:42 80 10 96 35.9 130/65(110) NSR 0 (11) 10(A) , No pain 9:42:58 80 12 98 39.6 127/60(104) NSR 0 (11) 10(A) , No pain 9:47:12 83 16 98 41.2 125/60(88) NSR 0 (11) 10(A) , No pain 9:52:18 85 15 97 28.4 79/66(72) NSR 0 (11) 10(A) , No pain Medications Time Medication Route Dose Verified Delivered Reason Notes Effe ctiveness by by 9:22:52 Oxygen etCO2 2 Celestino Buffie used for Nasal l/min Davin De Paz RN procedure cannula 9:22:59 Lidocaine 2% added 20ml Celestino Celestino for local to vial Davin Jin MD anesthetic field 9:23:06 Heparin Flush added 2 Celestino Celestino used for Bag to bags Davin Jin MD procedure (1000units/500ml field NS) 9:23:15 0.9% NaCl I.V. 100 Celestino Buffie Per ml/hr Davin De Paz RN physician 9:25:20 Versed I.V. 2 mg Celestino Buffie for Davin De Paz RN sedation 9:25:26 Fentanyl I.V. 100 Celestino Buffie for mcg Davin De Paz RN sedation 9:30:27 Versed I.V. 1 mg Celestino Buffie for Davin De Paz RN sedation 9:30:32 Fentanyl I.V. 50 Celestino Buffie for mcg Davin De Paz RN sedation 9:35:05 Versed I.V. 1 mg Celestino Buffie for Davin De Paz RN sedation 9:35:09 Fentanyl I.V. 50 Celestino Buffie for mcg Davin De Paz RN sedation 9:40:52 Versed I.V. 1 mg Celestino Buffie for Davin De Paz RN sedation 9:46:01 Versed I.V. 1 mg Celestino Buffie for Davin De Paz RN sedation Procedure Log Time Note 7:40:04 Informed consent obtained and on chart 7:45:28 Diagnostic Cath Status : Elective 7:47:44 Indication : Increased shortness of breath 7:47:48 Arrival Date: 02/25/2021 12:00:00 AM 7:47:49 Admit Source: Other 7:47:51 Insurance Payor : Private health insurance 7:48:18 Patient Height : 63 inches 7:48:24 Patient Weight : 166 lbs 7:50:12 ACC Patient presents with Stable Angina CCS Anginal Class 2--Slight limitation of ordinary activity. 7:50:14 Procedure Status Elective Heart Cath (OP). 7:50:16 Time tracking: Regular hours (M-F 7:00 - 5:00) 7:50:20 Plan of Care:Hemodynamics will remain stable., Cardiac rhythm will remain stable., Comfort level will be maintained., Respiratory function will remain adequate., Patient/ family verbilizes understanding of procedure., Procedure tolerated without complication., Recovers from procedure without complications.. 7:58:14 Lab Result : eGFR NONAFRICAN 46 ml/min 7:58:14 Lab Result : Creatinine 1.2 mg/dl 7:58:14 Lab Result : BUN 20 mg/dl 7:58:14 Lab Result : Hemoglobin 14.5 g/dl 7:58:34 3a) 45-59 Moderately reduced kidney function. 7:59:03 Maximum allowable contrast dose (3.7 X eGFR X 0.75)127 ml. 8:02:04 Risk of Mortality: 0.1 8:02:10 Risk of blood transfusion: 1.2 8:02:13 Risk of VITALY: 2.3 9:11:05 Ayesha De Paz RN sent for patient. Start room use. 9:16:15 Patient received from Pre/Post Procedure Room to CCL 2 Alert and oriented. Tansferred to table in Supine position. 9:16:16 Warm blankets applied, and azam hugger turned on for patient comfort. 9:16:17 Correct patient and procedure confirmed by team. 9:16:18 ECG and BP/O2 sat monitors applied to patient. 9:20:24 Vital chart was started 9:20:25 Baseline sample Acquired. 9:20:34 Rhythm: sinus tachycardia 9:20:35 Full Disclosure recording started 9:20:40 H&P Date Dictated: 02/25/2021 Within 30 days and on chart., H&P Addendum completed by physician on day of procedure. (MUST COMPLETE FOR ALL OUTPATIENTS). 9:20:41 Pre-procedure instructions explained to patient. 9:20:41 Pre-op teaching completed and patient verbalized understanding. 9:20:43 Family in patients room. 9:20:44 Patient NPO since Midnight. 9:20:46 Is the patient allergic to Iodine/contrast media? Yes. 9:20:52 Was the patient premedicated? Yes 9:20:57 Is patient on blood thinner?Yes 9:21:22 patient states last dose of Eliquis on 02/22/2021 9:21:24 Patient diabetic? No. 9:21:27 Previous problem with sedation/anesthesia? No ? 9:21:28 Snore? Yes 9:21:32 Sleep apnea? No 9:21:34 Deviated septum? No 9:21:36 Opens mouth fully? Yes 9:21:37 Sticks out tongue? Yes 9:21:53 Airway obstruction? Yes copd asthma 9:22:52 Oxygen 2 l/min etCO2 Nasal cannula was administered by Ayesha De Paz RN; used for procedure; Verbal order read back and verified. 9:22:59 Lidocaine 2% 20ml vial added to field was administered by Celestino Jin MD; for local anesthetic; Verbal order read back and verified. 9:23:06 Heparin Flush Bag (1000units/500ml NS) 2 bags added to field was administered by Celestino Jin MD; used for procedure; Verbal order read back and verified. 9:23:15 0.9% NaCl 100 ml/hr I.V. was administered by Ayesha De Paz RN; Per physician; Verbal order read back and verified. 9:23:23 Dentures? No ? 9:23:26 Pre procedure: right dorsailis pedis pulse 2+ Normal; easily identifiable; not easily obliterated 9:23:29 Pre procedure: left dorsailis pedis pulse 2+ Normal; easily identifiable; not easily obliterated 9:23:31 Patient pain scale 0/10 ?. 9:23:40 IV patent on arrival in right forearm with 0.9% NaCl at [facility]. 9:23:43 Lab results completed and on chart. 9:23:47 Right groin area was prepped with chlora-prep and draped in sterile fashion 9:23:48 Alarms reviewed by R. N. 9:23:48 Sharps counted by scrub and verified by R.N. 9:23:49 Physician arrived 9::50 --------ALL STOP TIME OUT------ 9:23:50 Final Timeout: patient, procedure, and site verified with staff and physician. All members of the team are in agreement. 9:23:53 Right groin site verified by team. 9:23:56 Fire Safety Assessment: A--An alcohol-based skin anteseptic being used preoperatively., C--Open oxygen or nitrous oxide is being used., D--An ESU, laser, or fiber-optic light is being used. 9:24:01 Physical assessment completed. ASA score P 2 - A patient with mild systemic disease as per Celestino Jin MD. 9:24:10 Sedation plan: IV Moderate Sedation Medication:Versed, Fentanyl 9:25:20 Versed 2 mg I.V. was administered by Ayesha De Paz RN; for sedation; Verbal order read back and verified. ::26 Fentanyl 100 mcg I.V. was administered by Ayesha De Paz RN; for sedation; Verbal order read back and verified. 9:27:13 Use device set Femoral Dx 9:27:14 ACIST Syringe (20319) opened to sterile field. 9:27:15 Bag Decanter (2001S) opened to sterile field. 9:27:15 Medline Cath Pack ([id number]) opened to sterile field. 9:27:16 ACIST Hand Control (68167) opened to sterile field. 9:27:16 ACIST Manifold (02408) opened to sterile field. 9:27:17 DIAGNOSTIC Multipack 5Fr catheter set ([id number]) opened to sterile field. 9:27:17 Tegaderm 4 x 4 (1626W) opened to sterile field. 9:27:18 SHEATH 5FR [place] (EEV389) opened to sterile field. 9:27:19 EMERALD Guide Wire (279-718) opened to sterile field. 9:30:27 Versed 1 mg I.V. was administered by Ayesha De Paz RN; for sedation; Verbal order read back and verified. 9:30:32 Fentanyl 50 mcg I.V. was administered by Ayesha De Paz RN; for sedation; Verbal order read back and verified. 9:34:17 Procedure started. 9:34:20 Local anesthetic to right femoral artery with Lidocaine 2% by Celestino Jin MD.INITIAL ACCESS ONLY 9:35:05 Versed 1 mg I.V. was administered by Ayesha De Paz RN; for sedation; Verbal order read back and verified. 9:35:09 Fentanyl 50 mcg I.V. was administered by Ayesha De Paz RN; for sedation; Verbal order read back and verified. 9:36:57 A 5 Fr sheath was inserted into the Right Femoral artery 9:37:13 A MULTIPACK JL 4.0 5Fr catheter was advanced over the wire and used for Left Coronary Angiography. 9:37:19 Baseline sample Acquired. 9:37:54 LCA angiography performed. 9:37:57 Injector settings: Ml/sec: 3, Volume: 6, 9:39:23 Catheter removed. 9:39:57 A DIAGNOSTIC AR MOD 5Fr Catheter ([id number]) was advanced over the wire and used for Multi-vessel Angiography. 9:40:39 RCA angiography performed. 9:40:41 Injector settings: Ml/sec: 3, Volume: 6, 9:40:52 Versed 1 mg I.V. was administered by Ayesha De Paz RN; for sedation; Verbal order read back and verified. 9:41:59 SVG to Circ angiography performed. 9:42:34 SVG to Diag angiography performed. 9:44:02 SVG to RCA angiography performed. 9:44:11 Catheter removed. 9:45:11 A DIAGNOSTIC IM 5Fr catheter ([id number]) was advanced over the wire and used for SVG Angiography. 9:46:01 Versed 1 mg I.V. was administered by Ayesha De Paz RN; for sedation; Verbal order read back and verified. 9:46:51 LAW to LAD angiography performed. 9:47:07 Injector settings: Ml/sec: 3, Volume: 6, 9:47:11 Catheter removed. 9:47:18 A MULTIPACK Pigtail 5 Fr catheter was advanced over the wire and used for LV Angiography. 9:47:27 Zero performed for pressure channel P1 9:48:49 LV hemodynamics recorded. 9:48:50 LV gram done using SILVA 9:48:52 Injector settings: Ml/sec: 5, Volume: 15, 9:49:02 EF : 60 % 9:49:12 Catheter removed. 9:49:16 EXOSEAL 5Fr (EX500) opened to sterile field. 9:49:26 Sheath removed intact; hemostasis achieved with Exoseal to the Right Femoral artery. 9:49:29 Procedure ended.(Physican Out) 9:49:51 Fluoroscopy time 04.90 minutes. 9:49:55 Fluoroscopy dose: 595 mGy 9:49:55 Flurop Dose total: 595 9:50:01 Dose Area Product 66739 mGy/cm. 9:50:04 Contrast amount:Isovue 300 105ml. 9:50:05 Maximum allowable dose exceeded? No. 9:50:06 Sharps counted by scrub and verified by R.N. 9:50:07 Insertion/operative site no bleeding no hematoma. 9:50:10 Post-op/insertion site Right Femoral artery dressed using a 4 x 4 and Tegaderm. 9:50:12 Post right femoral artery:stable 9:50:14 Post Procedure Pulses reassessed and unchanged 9:50:16 Post procedure rhythm: unchanged. 9:50:19 Estimated blood loss: 5 ml 9:50:44 Post procedure instruction explained to patient.Patient verbalizes understanding. 9:50:45 Patient needs reinforcement of post procedure teaching. 9:51:32 Procedure type changed to Cath procedure, Diagnostic procedure, [facility], [facility] w/Coronaries w/Grafts, Sedation Charges, Moderate Sedation 10-24 minutes 9:51:55 Procedure and supply charges have been captured, reviewed, submitted and are correct. 9:51:59 Procedure Complication : No complications 9:52:02 Vital chart was stopped 9:52:13 [facility] Findings: JOSHUA- will discuss options w/ pt 9:52:15 Operative report dictated upon procedure completion. 9:52:17 See physician's report for complete and final results. 9:52:36 Report given to Pre/Post Procedure Room. 9:52:39 Patient transfered to Pre/Post Procedure Room with Stretcher. 9:53:01 Procedure ended. 9:53:01 Full Disclosure recording stopped 9:53:10 End room use (Document Last) 9:54:02 End room use (Document Last) 9:54:39 End room use (Document Last) Device Usage Item Name Manufacture Quantity Catalog Hospital Part Current Minimal L ot# / Number Charge Number Stock Stock Serial# Code ACIST Acist 1 88788 [id number] [id number] [id number] 20 Syringe Medical (00825) Systems Inc Bag Microtek 1 2001S 233995 57060 820161 5 Decanter Medical Inc. () Medline Medline 1 [id number] 566813 64514 515888 5 Cath Pack ([id number]) ACIST Hand Acist 1 36802 436904 900583 282218 5 Control Medical (74115) Systems Inc ACIST Acist 1 72185 036710 658758 065582 5 Manifold Medical (33043) Systems Inc DIAGNOSTIC Cardinal 1 [id number] 344074 40728 950532 30 Multipack [place] 5Fr catheter set (CX0310) Tegaderm 4 3M 1 1626W 612165 417987 374409 5 x 4 (1626W) SHEATH 5FR Terumo 1 [id number] 822233 816690 612659 5 [place] (DGN060) EMERALD Cardinal 1 502-455 030640 390195 105242 5 Guide Wire Health (502-455) MULTIPACK Cardinal 1 633697 5 JL 4.0 5Fr Health catheter DIAGNOSTIC Cardinal 1 [id number] 600057 286948 114052 15 AR MOD 5Fr Health Catheter (334185D) DIAGNOSTIC Cardinal 1 [id number] 892357 903786 192484 5 IM 5Fr Health catheter (233190D) MULTIPACK Cardinal 1 305861 5 Pigtail 5 Health Fr catheter EXOSEAL 5Fr Cardinal 1 EX500 782997 528968 892218 10 (EX500) Health Signature Audit [place] Stage Time Signature Unsigned Intra-Procedure 02/25/2021 Ting Bal 9:54:02 AM RT(R) Intra-Procedure 02/25/2021 Ayesha De Paz RN 9:54:39 AM Intra-Procedure 02/25/2021 Celestino Jin MD 9:55:09 AM Signatures Performing Physician : Signature : Celestino Jin MD Date : Time : Nurse : Ayesha De Paz RN Signature : Date : Time : Monitor : Ting Bal RT Signature : Date : Time : [address] [place] [address]
[2021-02-25] MEDS ORDERED: PULMICORT0.5 MG/21 INH (07:42)
[2021-02-25] MEDS ORDERED: NORVASC5 MG PO (07:43)
[2021-02-25] MEDS ORDERED: LOMOTIL 2.5-0.1 EAC1 PO (07:46)
[2021-02-25] MEDS ORDERED: ROPINIROLE HCL0.5 MG PO (07:46)
[2021-02-25] MEDS ORDERED: STOOL SOFTENER100 M1 PO (07:47)
[2021-02-25] MEDS ORDERED: CLONIDINE HCL0.1 MG PO (07:47)
[2021-02-25] MEDS ORDERED: ALDACTONE100 MG PO (07:48)
[2021-02-25] MEDS ORDERED: NP THYROID30 MG PO (07:48)
[2021-02-25] MEDS ORDERED: SODIUM BICARBO325 MG PO (07:49)
[2021-02-25] MEDS ORDERED: MAGNESIUM CITRATE PO (07:50)
[2021-02-25] MEDS ORDERED: TRELEGY ELLIPT1 EACH INH (07:51)
[2021-02-25 07:55] VITALS: BP 149/45; Ht 160 cm; Wt 76.6 kg
[2021-02-25 08:22] LABS: EOSINOPHILS 1.1 % (0-7); HEMATOCRIT 28.6 % (36.0-48.0); HEMOGLOBIN 9.8 g/dL (12-16); LYMPHOCYTES 14.9 % (15-50); MCH 34.4 pg (26.0-34.0); MCHC 34.3 g/dL (31.0-37.0); MCV 100.1 fL (80.0-100.0); MEAN PLATELET VOLUME 7.8 fL (7.4-10.4); MONOCYTES 10.5 % (2-11); NEUTROPHILS 72.5 % (40-80); PLATELET COUNT 282 10x3/uL (130-400); RBC 2.85 10x6/uL (4.00-5.40); RDW 13.6 % (11.5-14.5); WBC 6.4 10x3/uL (4.8-10.8)
[2021-02-25 08:31] LABS: ANION GAP 12.4 mmol/L (8-16); CALCIUM 8.8 mg/dL (8.5-10.1); CARBON DIOXIDE 26.5 mmol/L (21.0-32.0); CREATININE - SERUM 1.2 mg/dL (0.6-1.3); LDL-HDL RATIO 1.9 ratio (1.5-3.5); POTASSIUM - SERUM 3.9 mmol/L (3.5-5.1)
--- NOTE | 2021-02-25 10:02 | NUR ---
ARRIVES TO ROOM 10 VIA STRETCHER S/P ANGIOGRAM. SEE MAINTENANCE TECH. DENIES PAIN OR NEEDS, IV INFUSING PER ORDERS, CALL LIGHT WITH IN REACH
--- NOTE | 2021-02-25 10:18 | NUR ---
PT RESTING QUIETLY SUPINE , VSS, SR WITH NO ECTOPY, RIGHT GROIN SOFT WITH NO OOZING OR BLEEDING EXTREMITY PINK AND WARM PEDAL PULSE PALPABLE, DENIES PAIN OR NEEDS, IV INFUSING PER ORDERS, SPOUSE AT BEDSIDE, CALL LIGHT WITHIN REACH
--- NOTE | 2021-02-25 10:31 | NUR ---
AWAKE AND ALERT , SUPINE, VSS, SR NO ECTOPY, RIGHT GROIN SOFT WITH OUT PALPABLE HEMATOMA EXTREMITY PINK AND WARM PEDAL PULSE PALPABLE, MOVES DIGITS, DENIES PAIN OR NEEDS, IV INFUSING PER ORDERS, CALL LIGHT WITHIN REACH, SPOUSE AT BEDSIDE
--- NOTE | 2021-02-25 10:45 | NUR ---
EYES CLOSED AROUSES EASILY TO VERBAL, VSS, NSR NO ECTOPY PER MONITOR, RIGHT GROIN OPSITE C/D/I AREA SOFT WITHOUT OOZING OR BLEEDING EXTREMITY PINK AND WARM PULSES PALPABLE, DENIES PAIN OR NEEDS, IV PATENT AND INFUSING PER ORDERS, SPOUSE AT BEDSIDE CALL LIGHT WITHIN REACH
--- NOTE | 2021-02-25 11:18 | NUR ---
PT PLACED IN SEMI FOWLERS POSITION AND [place] AND DRINK GIVEN, VSS, NSR WITH NO ECTOPY, RIGHT GROIN WITHOUT OOZING OR BLEEDING AREA SOFT WITHOUT PALPABLE HEMATOMA PULSES PALPABLE, DENIES PAIN OR NEEDS, IV PATENT, CALL LIGHT WITHIN REACH
--- NOTE | 2021-02-25 11:30 | NUR ---
VSS, NSR WITH NO ECTOPY, RIGHT GROIN OPSITE C/D/I SOFT WITHOUT OOZING OR BLEEDING NO PALPABLE HEMATOMA, PULSES PALPABLE, DENIES PAIN OR NEEDS.
--- NOTE | 2021-02-25 12:00 | NUR ---
PT ASSISTED TO BATHROOM AMBULATES DOWN HALLWAY WITH ASSIST FROM MYSELF AND HER SPOUSE VOIDS WITHOUT DIFFICULTY, RIGHT GROIN STABLE WTIH NO OOZING OR BLEEDING AREA SOFT WITHOUT PALPABLE HEMATOM PULSES PALPABLE, DENIES PAIN OR NEEDS, IV PATENT , CALL LIGHT GIVEN TO PT
--- NOTE | 2021-02-25 12:15 | NUR ---
DR BLISS TO BEDSIDE TO REVIEW TEST WITH PT AND SPOUSE
--- NOTE | 2021-02-25 12:30 | NUR ---
PT DISCHARGED ORDERED, IV REMOVED CATHETER INTACT DRESSING APPLIED, PT AND SPOUSE VERBALIZED UNDERSTANDING REGARDING DISCHARGE INSTRUCTIONS, RIGHT GROIN STABLE NO OOZING OR BLEEDING SOFT WITHOUT PALPABLE HEMATOMA, EXTREMITY PINK AND WARM, DENIES PAIN, AMBULATES TO WHEELCHAIR AND TAKEN TO CAR.
== END 2021-02-25 12:30 | disposition home or self-care (01) ==
LOC: D.CATH 06:58
PROVIDERS: ATTEND Internal Medicine Cardiovascular Disease
DX: I25.119 Atherosclerotic heart disease of native coronary artery with unspecified angina pectoris (principal); R94.39 Abnormal result of other cardiovascular function study; I10 Essential (primary) hypertension; R06.02 Shortness of breath; R05 Cough; R06.00 Dyspnea, unspecified; R60.0 Localized edema